=== PATIENT | male | born 1975 | race American Indian/Alaskan Native ===

== ENCOUNTER 2017-09-20 05:44 | Emergency (ER) | payer OTHER ==
[2017-09-20 06:16] VITALS: BP 158/96
== END 2017-09-20 09:25 | disposition left against medical advice (07) ==
LOC: ED 05:44
DX: R06.02 Shortness of breath (principal); Z53.21 Procedure and treatment not carried out due to patient leaving prior to being seen by health care provider

== ENCOUNTER 2021-08-15 20:06 | Inpatient (IN) | payer OTHER ==
--- NOTE | 2021-08-15 21:12 | Emergency Department Report ---
ED General Adult HPI - General Stated complaint: WELLNESS CHECK Time Seen by Provider: 08/15/21 20:53 Source: family Mode of arrival: Stretcher Limitations: Altered Mental Status, Physical Limitation - History of Present Illness Initial comments: 45-year-old male with history of anoxic brain injury (s/p cardiac arrest during a pancreatitis admission) presents to the hospital due to concerns of possible respiratory infection. History of present illness obtained from patient's since he is nonverbal with significant physical debility. Patient had anoxic brain injury status postcardiac arrest in June 2020. Since that time he has been hospitalized and then subsequently placed in a [facility]dc 2 hours away from the 's residence. She wanted him closer to home and felt that he was getting negligent care at the fdc due to recurrent bedsores. She recently got approved for a program that allows extended home health care for debilitated patients. Patient came home 1 week ago however, states that she did not receive any home care instructions or home nursing visits as promised. For the last several days she has noted he has been groaning a lot with increased airway congestion. She also expresses concerns that PEG tube may be leaking. - Related Data Home Medications Medication Instructions Recorded Confirmed Last Taken predniSONE [Deltasone] 20 mg PO TID PRN 01/25/15 08/16/21 01/24/15 Previous Rx's Medication Instructions Recorded Last Taken Type ALBUTEROL NEB's [Proventil 0.083% 2.5 mg IH Q4H PRN #25 neb 04/09/14 Unknown Rx NEBS] Albuterol Sulfate [Ventolin HFA] 2 puff IH Q4H PRN #1 hfa.aer.ad 04/09/14 Unknown Rx predniSONE [Deltasone] 20 mg PO TID #15 tab 04/09/14 01/24/15 Rx ALPRAZolam [Xanax TAB] 0.5 mg PO BID PRN #12 tab 01/25/15 Unknown Rx Lisinopril/Hydrochlorothiazide 1 each PO QDAY #30 tablet 01/25/15 Unknown Rx [Zestoretic 10-12.5 mg] Allergies Allergy/AdvReac Type Severity Reaction Status Date / Time No Known Allergies Allergy Verified 01/25/15 00:52 ED Review of Systems ROS: Stated complaint: WELLNESS CHECK Other details as noted in HPI Comment: Unobtainable due to pts medical conditions ED Past Medical Hx - Past Medical History Hx Hypertension: Yes Hx Asthma: Yes - Social History Smoking Status: Never Smoker - Medications Home Medications: Home Medications Medication Instructions Recorded Confirmed Last Taken Type ALBUTEROL NEB's [Proventil 0.083% 2.5 mg IH Q4H PRN #25 neb 04/09/14 08/16/21 Unknown Rx NEBS] Albuterol Sulfate [Ventolin HFA] 2 puff IH Q4H PRN #1 hfa.aer.ad 04/09/14 08/16/21 Unknown Rx predniSONE [Deltasone] 20 mg PO TID #15 tab 04/09/14 08/16/21 01/24/15 Rx ALPRAZolam [Xanax TAB] 0.5 mg PO BID PRN #12 tab 01/25/15 08/16/21 Unknown Rx Lisinopril/Hydrochlorothiazide 1 each PO QDAY #30 tablet 01/25/15 08/16/21 Unknown Rx [Zestoretic 10-12.5 mg] predniSONE [Deltasone] 20 mg PO TID PRN 01/25/15 08/16/21 01/24/15 History ED Physical Exam - Other Other exam information: General: No acute distress Head: Atraumatic Eyes: normal appearance ENT: Moist mucous membranes Neck: Normal appearance, no midline tenderness, tracheostomy scar noted Chest: Clear to auscultation bilaterally CV: Regular rate and rhythm Abdomen: Soft, normal bowel sounds, nontender, nondistended, no rebound or guarding Back: Normal inspection Extremity: Normal inspection, full range of motion Neuro: Eyes open, nonverbal, cannot follow commands, contracted upper extremities, no movement to lower extremities Psych: Appropriate behavior Skin: No rash ED Course Vital Signs 08/16/21 08/16/21 08/16/21 01:05 01:16 02:37 Temperature 98.6 F 99.9 F H Pulse Rate 142 H 142 H 118 H Respiratory 18 18 Rate Blood Pressure 137/69 Blood Pressure 131/69 126/88 [Right] O2 Sat by Pulse 96 97 Oximetry ED Medical Decision Making - Lab Data Result diagrams: 08/16/21 04:53 08/16/21 04:53 Lab Results 08/15/21 08/15/21 Range/Units 21:20 21:20 WBC 14.3 H (4.5-11.0) K/mm3 RBC 4.92 (3.65-5.03) M/mm3 Hgb 12.9 (11.8-15.2) gm/dl Hct 40.7 (35.5-45.6) % MCV 83 L (84-94) fl MCH 26 L (28-32) pg MCHC 32 (32-34) % RDW 14.2 (13.2-15.2) % Plt Count 244 (140-440) K/mm3 Lymph % (Auto) 18.3 (13.4-35.0) % [place] % (Auto) 5.3 (0.0-7.3) % Eos % (Auto) 2.4 (0.0-4.3) % Baso % (Auto) 0.4 (0.0-1.8) % Lymph # (Auto) 2.6 (1.2-5.4) K/mm3 [place] # (Auto) 0.8 (0.0-0.8) K/mm3 Eos # (Auto) 0.3 (0.0-0.4) K/mm3 Baso # (Auto) 0.1 (0.0-0.1) K/mm3 Seg Neutrophils % 73.6 H (40.0-70.0) % Seg Neutrophils # 10.6 H (1.8-7.7) K/mm3 Sodium 138 (137-145) mmol/L Potassium 4.3 (3.6-5.0) mmol/L Chloride 97.0 L (98-107) mmol/L Carbon Dioxide 27 (22-30) mmol/L Anion Gap 18 mmol/L BUN 14 (9-20) mg/dL Creatinine 0.5 L (0.8-1.3) mg/dL Estimated GFR > 60 ml/min BUN/Creatinine Ratio 28 % Glucose 123 H (75-100) mg/dL Calcium 10.3 H (8.4-10.2) mg/dL Total Bilirubin 0.30 (0.1-1.2) mg/dL AST 21 (5-40) units/L ALT 44 (7-56) units/L Alkaline Phosphatase 132 H (35-129) units/L Total Protein 8.3 H (6.3-8.2) g/dL Albumin 5.0 (3.9-5) g/dL Albumin/Globulin Ratio 1.5 % - EKG Data -: EKG Interpreted by Me EKG shows normal: sinus rhythm, ST-T waves (no stemi/ t inv) Rate: tachycardia (104) - Radiology Data Radiology results: report reviewed CHEST 1 VIEW 08/15/2021 8:21 PM INDICATION / CLINICAL INFORMATION: cough. COMPARISON: None available. FINDINGS: SUPPORT DEVICES: None. HEART / MEDIASTINUM: No significant abnormality. LUNGS / PLEURA: Questionable density in the retrocardiac region left lower lung No pneumothorax. ADDITIONAL FINDINGS: No significant additional findings. IMPRESSION: 1. Questionable density/infiltrate in the retrocardiac region in the left lower lung. - Medical Decision Making 45 yo male with hx of anoxic brain injury with increased secretions and x-ray findings of infiltrate. Patient meets criteria for sepsis without signs of septic shock at this time. Treated with vancomycin and cefepime as well as IV fluids. To be admitted by the hospitalist. PEG tube was placed by RN and no reports of leakage - Differential Diagnosis Increase secretions, pneumonia, sepsis, UTI, dehydration Critical Care Time: No Critical care attestation.: If time is entered above; I have spent that time in minutes in the direct care of this critically ill patient, excluding procedure time. ED Disposition Clinical Impression: Pneumonia, Sepsis, History of anoxic brain injury Disposition: ADMITTED INPATIENT Is pt being admited?: Yes Condition: Stable Time of Disposition: 22:25
--- NOTE | 2021-08-15 21:30 | XRay Report ---
CHEST 1 VIEW 08/15/2021 8:21 PM INDICATION / CLINICAL INFORMATION: cough. COMPARISON: None available. FINDINGS: SUPPORT DEVICES: None. HEART / MEDIASTINUM: No significant abnormality. LUNGS / PLEURA: Questionable density in the retrocardiac region left lower lung No pneumothorax. ADDITIONAL FINDINGS: No significant additional findings. IMPRESSION: 1. Questionable density/infiltrate in the retrocardiac region in the left lower lung. Signer Name: Dmitri Suárez MD Signed: 08/15/2021 9:26 PM Workstation Name: [id number]
[2021-08-15] MEDS ORDERED: SODIUM CHLORIDE 0.9% 1000 ML IV SOLN IV ONE (21:36)
[2021-08-15] MEDS ORDERED: CEFEPIME/NS 2 GM/100 ML 2 GM/100 ML BAG IV ONE (21:36)
[2021-08-15 21:41] LABS: Basophils # (Auto) 0.1 K/mm3 (0.0-0.1); Basophils % (Auto) 0.4 % (0.0-1.8); Eosinophils # (Auto) 0.3 K/mm3 (0.0-0.4); Eosinophils % (Auto) 2.4 % (0.0-4.3); Hematocrit 40.7 % (35.5-45.6); Hemoglobin 12.9 gm/dl (11.8-15.2); Lymphocytes # (Auto) 2.6 K/mm3 (1.2-5.4); Lymphocytes % (Auto) 18.3 % (13.4-35.0); Mean Corpuscular HGB Conc 32 % (32-34); Mean Corpuscular Volume 83 fl (84-94); Monocytes # (Auto) 0.8 K/mm3 (0.0-0.8); Monocytes % (Auto) 5.3 % (0.0-7.3); Platelet Count 244 K/mm3 (140-440); Red Blood Count 4.92 M/mm3 (3.65-5.03); Red Cell Distribution Width 14.2 % (13.2-15.2)
[2021-08-15 21:59] LABS: Alanine Aminotransferase 44 units/L (7-56); Blood Urea Nitrogen 14 mg/dL (9-20); Calcium 10.3 mg/dL (8.4-10.2); Hemolysis Index 3
[2021-08-15 22:00] LABS: BUN/Creatinine Ratio 28
[2021-08-15] MEDS ORDERED: VANCOMYCIN 1,250 MG in SODIUM CHLORIDE 0.9% 250ML 250 ML IV ONE (22:00)
[2021-08-15] MEDS ORDERED: VANCOMYCIN PHARMACY TO DOSE IV SCH (22:00)
[2021-08-15] MEDS ORDERED: MORPHINE 2 MG/1 ML INJ IV PRN (22:49)
[2021-08-15] MEDS ORDERED: ONDANSETRON 4 MG/2 ML INJ IV PRN (22:49)
[2021-08-15] MEDS ORDERED: ACETAMINOPHEN 325 MG TAB PO PRN (22:49)
[2021-08-15] MEDS ORDERED: HYDROmorphone 1 MG/1 ML INJ IV PRN (22:49)
[2021-08-15] MEDS ORDERED: ALBUTEROL 2.5 MG/3 ML NEBU IH PRN (22:49)
[2021-08-15] MEDS ORDERED: ALPRAZolam 0.5 MG TAB PO PRN (22:52)
[2021-08-15] MEDS ORDERED: ALBUTEROL 8.5 GM MDI INHALATION IH PRN (22:52)
[2021-08-15] MEDS ORDERED: predniSONE 20 MG TAB PO PRN (22:52)
--- NOTE | 2021-08-15 22:57 | History and Physical Report ---
History of Present Illness Date of examination: 08/15/21 Date of admission: 08/15/21 Chief complaint: Dyspnea History of present illness: 45-year-old male with history of respiratory failure status post trach removal, anoxic brain injury (s/p cardiac arrest during a pancreatitis admission) concerns of possible respiratory infection. Patient had anoxic brain injury status postcardiac arrest in June 2020. Since that time he has been hospitalized and then subsequently placed in a intermediate 2 hours away from the 's residence. She wanted him closer to home and felt that he was getting negligent care at the intermediate due to recurrent bedsores. She recently got approved for a program that allows extended home health care for debilitated patients. Patient came home 1 week ago however, states that she did not receive any home care instructions or home nursing visits as promised. For the last several days she has noted he has been groaning a lot with increased airway congestion. She also expresses concerns that PEG tube may be leaking. In the emergency room WBC of 14.3, lactic acid 2.50, chest x-ray shows questionable density/infiltrate in the upper retrocardiac region in the left lower lung. So going to admit the patient we will put the patient on pneumonia pathway, antibiotic will consult pulmonary for evaluation Past History Past Medical History: hypertension, other (Acute respiratory failure. Anoxic brain injury, cardiac arrest, asthma) Past Surgical History: Other (Trach removal) Social history: no significant social history Family history: hypertension Medications and Allergies Allergies Allergy/AdvReac Type Severity Reaction Status Date / Time No Known Allergies Allergy Verified 01/25/15 00:52 Home Medications Medication Instructions Recorded Confirmed Last Taken Type ALBUTEROL NEB's [Proventil 0.083% 2.5 mg IH Q4H PRN #25 neb 04/09/14 01/25/15 Unknown Rx NEBS] Albuterol Sulfate [Ventolin HFA] 2 puff IH Q4H PRN #1 hfa.aer.ad 04/09/14 01/25/15 Unknown Rx predniSONE [Deltasone] 20 mg PO TID #15 tab 04/09/14 01/25/15 01/24/15 Rx ALPRAZolam [Xanax TAB] 0.5 mg PO BID PRN #12 tab 01/25/15 Unknown Rx Lisinopril/Hydrochlorothiazide 1 each PO QDAY #30 tablet 01/25/15 Unknown Rx [Zestoretic 10-12.5 mg] predniSONE [Deltasone] 20 mg PO TID PRN 01/25/15 01/25/15 01/24/15 History Active Meds: Active Medications Acetaminophen (Acetaminophen 325 Mg Tab) 650 mg PO Q4H PRN PRN Reason: Pain MILD(1-3)/Fever >100.5/IBARRA Albuterol (Albuterol 2.5 Mg/3 Ml Nebu) 2.5 mg IH Q3HRT PRN PRN Reason: Shortness Of Breath Albuterol/Ipratropium (Ipratropium/Albuterol Sulfate 3 Ml Ampul.Neb) 1 ampul IH Q6HRT [facility] Azithromycin (Azithromycin 250 Mg Tab) 500 mg PO QDAY [facility]; Protocol Famotidine (Famotidine 20 Mg/2 Ml Inj) 20 mg IV BID [facility] Heparin Sodium (Porcine) (Heparin 5,000 Unit/1 Ml Vial) 5,000 unit SUB-Q Q12HR [facility] Hydromorphone HCl (Hydromorphone 1 Mg/1 Ml Inj) 0.5 mg IV Q3H PRN PRN Reason: Pain , Severe (7-10) Vancomycin HCl 1,250 mg/ (Sodium Chloride) 275 mls @ 183.333 mls/hr IV ONCE ONE; Protocol Stop: 08/15/21 23:29 Last Admin: 08/15/21 22:16 Dose: 183.333 mls/hr Dextrose/Sodium Chloride (D5/0.45ns) 1,000 mls @ 125 mls/hr IV DIRECT [facility] Ceftriaxone Sodium (Rocephin/Ns 2 Gm/100 Ml) 2 gm in 100 mls @ 200 mls/hr IV Q24H [facility]; Protocol Morphine Sulfate (Morphine 2 Mg/1 Ml Inj) 2 mg IV Q4H PRN PRN Reason: Pain, Moderate (4-6) Ondansetron HCl (Ondansetron 4 Mg/2 Ml Inj) 4 mg IV Q8H PRN PRN Reason: Nausea And Vomiting Sodium Chloride (Sodium Chloride 0.9% 10 Ml Flush Syringe) 10 ml IV BID [facility] Sodium Chloride (Sodium Chloride 0.9% 10 Ml Flush Syringe) 10 ml IV PRN PRN PRN Reason: LINE FLUSH Review of Systems All systems: negative Cardiovascular: shortness of breath, dyspnea on exertion Respiratory: cough, shortness of breath, dyspnea on exertion, congestion Exam - Constitutional General appearance: Present: no acute distress, well-nourished - EENT Eyes: Present: PERRL ENT: hearing intact, clear oral mucosa - Neck Neck: Present: supple, normal ROM - Respiratory Respiratory effort: normal Respiratory: bilateral: CTA - Cardiovascular Heart Sounds: Present: S1 & S2. Absent: rub, click - Extremities Extremities: pulses symmetrical, No edema Peripheral Pulses: within normal limits - Abdominal General gastrointestinal: Present: soft, non-tender, non-distended, normal bowel sounds Male genitourinary: Present: normal - Integumentary Integumentary: Present: clear, warm, dry - Musculoskeletal Musculoskeletal: gait normal, strength equal bilaterally - Neurologic Neurologic: CNII-XII intact, moves all extremities Results - Labs CBC & Chem 7: 08/15/21 21:20 08/15/21 21:20 Labs: Laboratory Last Values WBC 14.3 K/mm3 (4.5-11.0) H 08/15/21 21:20 RBC 4.92 M/mm3 (3.65-5.03) 08/15/21 21:20 Hgb 12.9 gm/dl (11.8-15.2) 08/15/21 21:20 Hct 40.7 % (35.5-45.6) 08/15/21 21:20 MCV 83 fl (84-94) L 08/15/21 21:20 MCH 26 pg (28-32) L 08/15/21 21:20 MCHC 32 % (32-34) 08/15/21 21:20 RDW 14.2 % (13.2-15.2) 08/15/21 21:20 Plt Count 244 K/mm3 (140-440) 08/15/21 21:20 Lymph % (Auto) 18.3 % (13.4-35.0) 08/15/21 21:20 [place] % (Auto) 5.3 % (0.0-7.3) 08/15/21 21:20 Eos % (Auto) 2.4 % (0.0-4.3) 08/15/21 21:20 Baso % (Auto) 0.4 % (0.0-1.8) 08/15/21 21:20 Lymph # (Auto) 2.6 K/mm3 (1.2-5.4) 08/15/21 21:20 [place] # (Auto) 0.8 K/mm3 (0.0-0.8) 08/15/21 21:20 Eos # (Auto) 0.3 K/mm3 (0.0-0.4) 08/15/21 21:20 Baso # (Auto) 0.1 K/mm3 (0.0-0.1) 08/15/21 21:20 Seg Neutrophils % 73.6 % (40.0-70.0) H 08/15/21 21:20 Seg Neutrophils # 10.6 K/mm3 (1.8-7.7) H 08/15/21 21:20 Sodium 138 mmol/L (137-145) 08/15/21 21:20 Potassium 4.3 mmol/L (3.6-5.0) 08/15/21 21:20 Chloride 97.0 mmol/L (98-107) L 08/15/21 21:20 Carbon Dioxide 27 mmol/L (22-30) 08/15/21 21:20 Anion Gap 18 mmol/L 08/15/21 21:20 BUN 14 mg/dL (9-20) 08/15/21 21:20 Creatinine 0.5 mg/dL (0.8-1.3) L 08/15/21 21:20 Estimated GFR > 60 ml/min 08/15/21 21:20 BUN/Creatinine Ratio 28 % 08/15/21 21:20 Glucose 123 mg/dL (75-100) H 08/15/21 21:20 Lactic Acid 2.50 mmol/L (0.7-2.0) H* 08/15/21 21:20 Calcium 10.3 mg/dL (8.4-10.2) H 08/15/21 21:20 Total Bilirubin 0.30 mg/dL (0.1-1.2) 08/15/21 21:20 AST 21 units/L (5-40) 08/15/21 21:20 ALT 44 units/L (7-56) 08/15/21 21:20 Alkaline Phosphatase 132 units/L (35-129) H 08/15/21 21:20 Total Protein 8.3 g/dL (6.3-8.2) H 08/15/21 21:20 Albumin 5.0 g/dL (3.9-5) 08/15/21 21:20 Albumin/Globulin Ratio 1.5 % 08/15/21 21:20 - Imaging and Cardiology Chest x-ray: report reviewed Assessment and Plan VTE prophylaxis?: Chemical Plan of care discussed with patient/family: Yes - Patient Problems (1) Pneumonia Status: Acute Plan to address problem: Admit the patient to the IM. Oxygen via nasal cannula 3 L/min. DuoNeb by nebulizer every 4 hours. Rocephin 2 g IV daily. Zithromax 500 mg IV daily. Blood culture and sputum culture. Pulmonary evaluation (2) History of respiratory failure Status: Acute Plan to address problem: Oxygen via nasal cannula 3 L/min. DuoNeb by nebulizer every 4 hours. Prednisone 20 mg p.o. daily (3) Asthma Status: Acute Plan to address problem: Oxygen via nasal cannula 3 L/min. DuoNeb by nebulizer every 4 hours. Prednisone 20 mg p.o. daily (4) Anoxic encephalopathy Status: Acute Plan to address problem: We will monitor the patient closely. Outpatient follow-up with neurology (5) Sepsis Status: Acute Plan to address problem: D5 half-normal saline at the rate of 100 cc/h. Rocephin 2 g IV daily. Zithromax 500 mg IV daily. Blood culture and sputum culture. Recheck CBC and lactic acid (6) DVT prophylaxis Status: Acute Plan to address problem: Heparin 5000 units subcu every 12 hours for DVT prophylaxis. Pepcid 20 mg IV every 12 hours for GI prophylaxis. Patient is a full code
[2021-08-16] MEDS ORDERED: SODIUM CHLORIDE 0.9% 500 ML 500 ML IV ONE (00:34)
[2021-08-16] MEDS: cefTRIAXone/NS 2 GM/100 ML 2 GM/100 ML BAG IV SCH ×2 (00:49→22:32)
[2021-08-16] MEDS ORDERED: dilTIAZem 25 MG/5 ML INJ IV ONE (00:55)
[2021-08-16] MEDS ORDERED: dilTIAZem 25 MG/5 ML INJ ONE (01:04)
[2021-08-16] MEDS: IPRATROPIUM/ALBUTEROL SULFATE 3 ML AMPUL.NEB IH SCH ×4 (03:02→21:03)
[2021-08-16] MEDS: D5W/0.45% NACL 1,000 ML IV SCH ×2 (03:12→10:44)
[2021-08-16 05:14] LABS: Basophils % (Auto) 0.3 % (0.0-1.8); Eosinophils # (Auto) 0.1 K/mm3 (0.0-0.4); Eosinophils % (Auto) 0.6 % (0.0-4.3); Hematocrit 36.3 % (35.5-45.6); Hemoglobin 11.4 gm/dl (11.8-15.2); Lymphocytes # (Auto) 1.6 K/mm3 (1.2-5.4); Lymphocytes % (Auto) 15.3 % (13.4-35.0); Mean Corpuscular HGB Conc 32 % (32-34); Mean Corpuscular Volume 83 fl (84-94); Monocytes # (Auto) 0.7 K/mm3 (0.0-0.8); Monocytes % (Auto) 6.9 % (0.0-7.3); Platelet Count 196 K/mm3 (140-440); Red Blood Count 4.36 M/mm3 (3.65-5.03); Red Cell Distribution Width 14.3 % (13.2-15.2)
[2021-08-16 05:34] LABS: Blood Urea Nitrogen 14 mg/dL (9-20); Calcium 9.2 mg/dL (8.4-10.2); Hemolysis Index 2
[2021-08-16 05:43] LABS: BUN/Creatinine Ratio 35
--- NOTE | 2021-08-16 09:21 | Event Note ---
Date: 08/16/21 PEG site examined, appears c/d/i and seems to be in proper location. Can try feedings/meds via peg tube, and if there is concern about leaking/other issues, would obtain gastrograffin study via peg to ensure in proper spot. please call back if there are issues after resuming use of peg tube
--- NOTE | 2021-08-16 09:47 | Electrocardiograph Report ---
[facility] Test Date: 2021-08-15 Test Time: 21:41:28 Pat Name: SHANIA RIGGINS Department: Room: A265 1 Gender: M Dosimetrist: MACI : 1975 Requested By: ZACK WILDER Order Number: [id number] Reading MD: Damien Dsouza Measurements Intervals [place] Rate: 104 P: 69 NM: 138 QRS: -19 QRSD: 83 T: 14 QT: 323 QTc: 426 Interpretive Statements Sinus tachycardia Probable left atrial enlargement Low voltage, precordial leads No previous ECG available for comparison Electronically Signed On 08-16-2021 9:46:50 EDT by Damien Dsouza
[2021-08-16] MEDS ORDERED: NON-FORMULARY EACH (Lisinopril/Hydrochlorothiazide [Zestoretic 10-12.5 Mg] 1 EACH Tablet) PO SCH (10:00)
[2021-08-16] MEDS: FAMOTIDINE 20 MG/2 ML INJ IV SCH ×2 (11:53→22:19)
[2021-08-16] MEDS: HEPARIN 5,000 UNIT/1 ML VIAL SUB-Q SCH ×2 (11:53→22:19)
[2021-08-16] MEDS: hydroCHLOROthiazide 12.5 MG CAP PO SCH (11:54)
[2021-08-16] MEDS: AZITHROMYCIN 250 MG TAB PO SCH (11:54)
[2021-08-16] MEDS: LISINOPRIL 10 MG TAB PO SCH (11:54)
--- NOTE | 2021-08-16 13:04 | Consultation ---
History of Present Illness Consult date: 08/16/21 Reason for consult: abnormal CXR/CT, other (Lung congestion) History of present illness: 45-year-old male with history of respiratory failure status post trach removal, anoxic brain injury (s/p cardiac arrest during a pancreatitis admission) c oncerns of possible respiratory infection. Patient had anoxic brain injury status postcardiac arrest in June 2020. Since that time he has been hospitalized and then subsequently placed in a snf 2 hours away from the 's residence. She wanted him closer to home and felt that he was ge tting negligent care at the snf due to recurrent bedsores. She recently got approved for a program that allows extended home health care for debilitated patients. Patient came home 1 week ago however, states that she did not receive any home care instructions or home nursing visits as promised. For the last several days she has noted he has been groaning a lot with increased airway congestion. She also expresses concerns that PEG tube may be leaking. In the emergency room WBC of 14.3, lactic acid 2.50, chest x-ray shows questionable density/infiltrate in the retrocardiac region in the left lower lung. Patient currently on pneumonia pathway. Past History Past Medical History: hypertension, other (Acute respiratory failure. Anoxic brain injury, cardiac arrest, asthma and pancreatitis) Past Surgical History: Other (Trach removal) Social history: no significant social history Family history: hypertension Medications and Allergies Allergies Allergy/AdvReac Type Severity Reaction Status Date / Time No Known Allergies Allergy Verified 01/25/15 00:52 Home Medications Medication Instructions Recorded Confirmed Last Taken Type ALBUTEROL NEB's [Proventil 0.083% 2.5 mg IH Q4H PRN #25 neb 04/09/14 01/25/15 Unknown Rx NEBS] Albuterol Sulfate [Ventolin HFA] 2 puff IH Q4H PRN #1 hfa.aer.ad 04/09/14 01/25/15 Unknown Rx predniSONE [Deltasone] 20 mg PO TID #15 tab 04/09/14 01/25/15 01/24/15 Rx ALPRAZolam [Xanax TAB] 0.5 mg PO BID PRN #12 tab 01/25/15 Unknown Rx Lisinopril/Hydrochlorothiazide 1 each PO QDAY #30 tablet 01/25/15 Unknown Rx [Zestoretic 10-12.5 mg] predniSONE [Deltasone] 20 mg PO TID PRN 01/25/15 01/25/15 01/24/15 History Active Meds: Active Medications Acetaminophen (Acetaminophen 325 Mg Tab) 650 mg PO Q4H PRN PRN Reason: Pain MILD(1-3)/Fever >100.5/IBARRA Albuterol (Albuterol 2.5 Mg/3 Ml Nebu) 2.5 mg IH Q3HRT PRN PRN Reason: Shortness Of Breath Albuterol/Ipratropium (Ipratropium/Albuterol Sulfate 3 Ml Ampul.Neb) 1 ampul IH Q6HRT [facility] Last Admin: 08/16/21 08:57 Dose: 1 ampul Alprazolam (Alprazolam 0.5 Mg Tab) 0.5 mg PO BID PRN PRN Reason: Anxiety Azithromycin (Azithromycin 250 Mg Tab) 500 mg PO QDAY [facility]; Protocol Stop: 08/20/21 10:01 Last Admin: 08/16/21 11:54 Dose: 500 mg Famotidine (Famotidine 20 Mg/2 Ml Inj) 20 mg IV BID [facility] Last Admin: 08/16/21 11:53 Dose: 20 mg Heparin Sodium (Porcine) (Heparin 5,000 Unit/1 Ml Vial) 5,000 unit SUB-Q Q12HR [facility] Last Admin: 08/16/21 11:53 Dose: 5,000 unit Hydrochlorothiazide (Hydrochlorothiazide 12.5 Mg Cap) 12.5 mg PO QDAY [facility] Last Admin: 08/16/21 11:54 Dose: 12.5 mg Hydromorphone HCl (Hydromorphone 1 Mg/1 Ml Inj) 0.5 mg IV Q3H PRN PRN Reason: Pain , Severe (7-10) Dextrose/Sodium Chloride (D5/0.45ns) 1,000 mls @ 125 mls/hr IV DIRECT [facility] Last Admin: 08/16/21 10:44 Dose: 125 mls/hr Ceftriaxone Sodium (Rocephin/Ns 2 Gm/100 Ml) 2 gm in 100 mls @ 200 mls/hr IV Q24H [facility]; Protocol Last Admin: 08/16/21 00:49 Dose: 200 mls/hr Lisinopril (Lisinopril 10 Mg Tab) 10 mg PO QDAY [facility] Last Admin: 08/16/21 11:54 Dose: 10 mg Morphine Sulfate (Morphine 2 Mg/1 Ml Inj) 2 mg IV Q4H PRN PRN Reason: Pain, Moderate (4-6) Ondansetron HCl (Ondansetron 4 Mg/2 Ml Inj) 4 mg IV Q8H PRN PRN Reason: Nausea And Vomiting Prednisone (Prednisone 20 Mg Tab) 20 mg PO TID PRN PRN Reason: asthma Sodium Chloride (Sodium Chloride 0.9% 10 Ml Flush Syringe) 10 ml IV BID [facility] Last Admin: 08/16/21 11:55 Dose: 10 ml Sodium Chloride (Sodium Chloride 0.9% 10 Ml Flush Syringe) 10 ml IV PRN PRN PRN Reason: LINE FLUSH Review of Systems ROS unobtainable: due to mental status Physical Examination Vital signs: Vital Signs Pulse BP 142 H 137/69 08/16/21 01:05 08/16/21 01:05 General appearance: other (Altered mental status in a vegetative state. Retrognathia noted) Eyes: non-icteric ENT: oropharynx moist, other (Secretions noted) Neck: supple, other (Healed trach site. No stridor) Ascultation: Bilateral: other (Some upper airway noises bilaterally) Cardiovascular: regular rate and rhythm Gastrointestinal: normoactive bowel sounds, soft, non-tender, other (PEG present) Integumentary: normal Extremities: no cyanosis, no edema Gait: other (Bedridden) other (Vegetative state unresponsive opens eyes) Results - Laboratory Findings CBC and BMP: 08/16/21 04:53 08/16/21 04:53 Abnormal lab findings: Abnormal Labs 08/15/21 08/15/21 08/15/21 21:20 21:20 21:20 WBC 14.3 H Hgb MCV 83 L MCH 26 L Seg Neutrophils % 73.6 H Seg Neutrophils # 10.6 H Chloride 97.0 L Creatinine 0.5 L Glucose 123 H Lactic Acid 2.50 H* Calcium 10.3 H Alkaline Phosphatase 132 H Total Protein 8.3 H 08/15/21 08/16/21 08/16/21 23:19 04:53 04:53 WBC Hgb 11.4 L MCV 83 L MCH 26 L Seg Neutrophils % 76.9 H Seg Neutrophils # 7.9 H Chloride Creatinine 0.4 L Glucose 153 H Lactic Acid 2.20 H* Calcium Alkaline Phosphatase Total Protein - Diagnostic Findings Chest x-ray: image reviewed (Questionable subtle infiltrate in the retrocardiac area and left lower lobe) Assessment and Plan Impression: Possible left lower lobe pneumonia Suspect aspiration pneumonia Anoxic brain injury. Patient in vegetative state. Poor airway clearance. Recommendation: Continue with antibiotic therapy. Aggressive pulmonary toileting. Patient will require suction machine etc. at home. Long-term prognosis is guarded DVT and GI prophylaxis
--- NOTE | 2021-08-16 13:37 | Progress Note ---
Assessment and Plan Assessment and plan: 45-year-old male with history of respiratory failure status post trach removal, anoxic brain injury (s/p cardiac arrest during a pancreatitis admission) concerns of possible respiratory infection. Patient had anoxic brain injury status postcardiac arrest in June 2020. Since that time he has been hosp italized and then subsequently placed in a care home 2 hours away from the 's residence. She wanted him closer to home and felt that he was getting negligent care at the care home due to recurrent bedsores. She recently got approved for a program that allows extended home health care for debilitated patients. Patient came home 1 week ago however, states that she did not receive any home care instructions or home nursing visits as promised. For the last several days she has noted he has been groaning a lot with increased airway congestion. She also expresses concerns that PEG tube may be leaking. In the emergency room WBC of 14.3, lactic acid 2.50, chest x-ray shows quest ionable density/infiltrate in the upper retrocardiac region in the left lower lung. So going to admit the patient we will put the patient on pneumonia pathway, antibiotic will consult pulmonary for evaluation 08/16: Discussed extensively with the spouse. Will obtain case management to assist with home discharge plan to ensure the spouse has the support needed at home and training required to take care of the patient. In the meantime continue oxygen support and also antibiotic therapy. Will obtain CT abdomen and pelvis with p.o. contrast. We will follow leukocytosis and lactic acidosis. P atient does not have any new fever will transition patient to the medical floor with continued management. Aspiration precautions and fall precautions. Plan of care discussed with the spouse advance care directive planning discussed in detail patient remains a full code. Spent with greater than 50% spent on counseling and care coordination #Pneumonia Status: Acute Plan to address problem: Admit the patient to the [facility]. Oxygen via nasal cannula 3 L/min. DuoNeb by nebulizer every 4 hours. Rocephin 2 g IV daily. Zithromax 500 mg IV daily. Blood culture and sputum culture. Pulmonary evaluation # History of respiratory failure Status: Acute Plan to address problem: Oxygen via nasal cannula 3 L/min. DuoNeb by nebulizer every 4 hours. Prednisone 20 mg p.o. daily #Asthma by history Status: Acute Plan to address problem: Oxygen via nasal cannula 3 L/min. DuoNeb by nebulizer every 4 hours. Prednisone 20 mg p.o. daily #Anoxic encephalopathy Status: Acute Plan to address problem: We will monitor the patient closely. Outpatient follow-up with neurology #Sepsis Status: Acute Plan to address problem: D5 half-normal saline at the rate of 100 cc/h. Rocephin 2 g IV daily. Zithromax 500 mg IV daily. Blood culture and sputum culture. Recheck CBC and lactic acid #possible malfunctioning PEG tube #Bedbound #Abdominal pain #DVT prophylaxis Status: Acute Plan to address problem: Heparin 5000 units subcu every 12 hours for DVT prophylaxis. Pepcid 20 mg IV every 12 hours for GI prophylaxis. Patient is a full code 35 minutes History Interval history: Patient seen and examined spouse at bedside. Appears that the patient was just sent home from nursing facility but unfortunately there was no support at the house and no training provided to the spouse. She reports that he appeared to have been gasping for air and also appeared to have a significant amount of secretion and sometimes moaning as if in pain. Hospitalist Physical - Physical exam Narrative exam: VITAL SIGNS: Reviewed. GENERAL: The patient appears normally developed, well healed stoma vital signs as documented. HEAD: No signs of head trauma. EYES: Pupils are equal. Extraocular motions intact. EARS: Unable to examine due to anoxic injury MOUTH: Oropharynx is normal. NECK: No adenopathy, no JVD. CHEST: Chest with clear breath sounds bilaterally. No wheezes, rales, or rhonchi. CARDIAC: Regular rate and rhythm. S1 and S2, without murmurs, gallops, or rubs. VASCULAR: No Edema. Peripheral pulses normal and equal in all extremities. ABDOMEN: Soft, non tender and non distended. No rebound or guarding, and no masses palpated. Bowel Sounds normal. MUSCULOSKELETAL: Good range of motion of all major joints. Extremities without clubbing, cyanosis or edema. NEUROLOGIC EXAM: Awake contracted upper extremities. Full neuro exam unable to perform as patient has underlying profound encephalopathy from anoxic encephalopathy PSYCHIATRIC: Unable to exam SKIN: detail exam as documented in skin assessment - Constitutional Vitals: Temp Pulse Resp BP Pulse Ox 98.0 F 86 14 96/62 100 08/16/21 11:42 08/16/21 11:54 08/16/21 08:58 08/16/21 11:54 08/16/21 09:11 General appearance: Present: no acute distress, well-nourished Results - Labs CBC & Chem 7: 08/16/21 04:53 08/16/21 04:53 Labs: Laboratory Last Values WBC 10.3 K/mm3 (4.5-11.0) 08/16/21 04:53 RBC 4.36 M/mm3 (3.65-5.03) 08/16/21 04:53 Hgb 11.4 gm/dl (11.8-15.2) L 08/16/21 04:53 Hct 36.3 % (35.5-45.6) 08/16/21 04:53 MCV 83 fl (84-94) L 08/16/21 04:53 MCH 26 pg (28-32) L 08/16/21 04:53 MCHC 32 % (32-34) 08/16/21 04:53 RDW 14.3 % (13.2-15.2) 08/16/21 04:53 Plt Count 196 K/mm3 (140-440) 08/16/21 04:53 Lymph % (Auto) 15.3 % (13.4-35.0) 08/16/21 04:53 [place] % (Auto) 6.9 % (0.0-7.3) 08/16/21 04:53 Eos % (Auto) 0.6 % (0.0-4.3) 08/16/21 04:53 Baso % (Auto) 0.3 % (0.0-1.8) 08/16/21 04:53 Lymph # (Auto) 1.6 K/mm3 (1.2-5.4) 08/16/21 04:53 [place] # (Auto) 0.7 K/mm3 (0.0-0.8) 08/16/21 04:53 Eos # (Auto) 0.1 K/mm3 (0.0-0.4) 08/16/21 04:53 Baso # (Auto) 0.0 K/mm3 (0.0-0.1) 08/16/21 04:53 Seg Neutrophils % 76.9 % (40.0-70.0) H 08/16/21 04:53 Seg Neutrophils # 7.9 K/mm3 (1.8-7.7) H 08/16/21 04:53 Sodium 140 mmol/L (137-145) 08/16/21 04:53 Potassium 3.9 mmol/L (3.6-5.0) 08/16/21 04:53 Chloride 102.6 mmol/L (98-107) 08/16/21 04:53 Carbon Dioxide 26 mmol/L (22-30) 08/16/21 04:53 Anion Gap 15 mmol/L 08/16/21 04:53 BUN 14 mg/dL (9-20) 08/16/21 04:53 Creatinine 0.4 mg/dL (0.8-1.3) L 08/16/21 04:53 Estimated GFR > 60 ml/min 08/16/21 04:53 BUN/Creatinine Ratio 35 % 08/16/21 04:53 Glucose 153 mg/dL (75-100) H 08/16/21 04:53 Lactic Acid 2.20 mmol/L (0.7-2.0) H* 08/15/21 23:19 Calcium 9.2 mg/dL (8.4-10.2) 08/16/21 04:53 Total Bilirubin 0.30 mg/dL (0.1-1.2) 08/15/21 21:20 AST 21 units/L (5-40) 08/15/21 21:20 ALT 44 units/L (7-56) 08/15/21 21:20 Alkaline Phosphatase 132 units/L (35-129) H 08/15/21 21:20 Total Protein 8.3 g/dL (6.3-8.2) H 08/15/21 21:20 Albumin 5.0 g/dL (3.9-5) 08/15/21 21:20 Albumin/Globulin Ratio 1.5 % 08/15/21 21:20 Microbiology: Microbiology 08/15/21 21:20 Peripheral/Venous Blood Culture - Preliminary Culture in Progress 08/15/21 21:20 Peripheral/Venous Blood Culture - Preliminary Culture in Progress Castellanos/IV: Voiding Method Condom Catheter Active Medications - Current Medications Current Medications: Generic Name Dose Route Start Last Admin Trade Name Freq PRN Reason Stop Dose Admin Acetaminophen 650 mg 08/15/21 22:49 Acetaminophen 325 Mg Tab PO Q4H PRN Pain MILD(1-3)/Fever >100.5/IBARRA Albuterol 2.5 mg 08/15/21 22:49 Albuterol 2.5 Mg/3 Ml Nebu IH Q3HRT PRN Shortness Of Breath Albuterol/Ipratropium 1 ampul 08/16/21 02:00 08/16/21 08:57 Ipratropium/Albuterol Sulfate 3 Ml Ampul.Neb IH 1 ampul Q6HRT SONJA Administration Alprazolam 0.5 mg 08/15/21 22:52 Alprazolam 0.5 Mg Tab PO BID PRN Anxiety Azithromycin 500 mg 08/16/21 10:00 08/16/21 11:54 Azithromycin 250 Mg Tab PO 08/20/21 10:01 500 mg QDAY SONJA Administration Protocol Famotidine 20 mg 08/16/21 10:00 08/16/21 11:53 Famotidine 20 Mg/2 Ml Inj IV 20 mg BID SONJA Administration Heparin Sodium (Porcine) 5,000 unit 08/16/21 10:00 08/16/21 11:53 Heparin 5,000 Unit/1 Ml Vial SUB-Q 5,000 unit Q12HR SONJA Administration Hydrochlorothiazide 12.5 mg 08/16/21 10:00 08/16/21 11:54 Hydrochlorothiazide 12.5 Mg Cap PO 12.5 mg QDAY SONJA Administration Hydromorphone HCl 0.5 mg 08/15/21 22:49 Hydromorphone 1 Mg/1 Ml Inj IV Q3H PRN Pain , Severe (7-10) Dextrose/Sodium Chloride 1,000 mls @ 125 mls/hr 08/15/21 23:00 08/16/21 10:44 D5/0.45ns IV 125 mls/hr DIRECT SONJA Administration Ceftriaxone Sodium 2 gm in 100 mls @ 200 mls/hr 08/15/21 23:00 08/16/21 00:49 Rocephin/Ns 2 Gm/100 Ml IV 200 mls/hr Q24H SONJA Administration Protocol Lisinopril 10 mg 08/16/21 10:00 08/16/21 11:54 Lisinopril 10 Mg Tab PO 10 mg QDAY SONJA Administration Morphine Sulfate 2 mg 08/15/21 22:49 Morphine 2 Mg/1 Ml Inj IV Q4H PRN Pain, Moderate (4-6) Ondansetron HCl 4 mg 08/15/21 22:49 Ondansetron 4 Mg/2 Ml Inj IV Q8H PRN Nausea And Vomiting Prednisone 20 mg 08/15/21 22:52 Prednisone 20 Mg Tab PO TID PRN asthma Sodium Chloride 10 ml 08/16/21 10:00 08/16/21 11:55 Sodium Chloride 0.9% 10 Ml Flush Syringe IV 10 ml BID SONJA Administration Sodium Chloride 10 ml 08/15/21 22:49 Sodium Chloride 0.9% 10 Ml Flush Syringe IV PRN PRN LINE FLUSH Nutrition/Malnutrition Assess - Dietary Evaluation Nutrition/Malnutrition Findings: Nutrition Notes Start: 08/16/21 10:38 Freq: Status: Active Protocol: Document 08/16/21 10:38 RS (Rec: 08/16/21 11:01 RS [id number]) Nutrition Notes Need for Assessment generated from: MD Order Initial or Follow up Assessment Current Diagnosis Decubitus(Pressure Ulcer), Sepsis,Respiratory Failure Other Pertinent Diagnosis Pneu, S/P Cardiac Arrest, Encephalopathy Dyspenea Current Diet NPO Labs/Tests Cr: 0.4 Glu: 153 Pertinent Medications D5/0.45NS at 125mL/hr Height 6 ft Weight 68 kg [place] Body Weight (kg) 80.90 BMI 20.3 Intake Prior to Admission Poor Weight change and time frame 22% wt loss in 1.5 months. Pt was 87.09kg upon admission in June 2021 Weight Status Appropriate Subjective/Other Information RD consult from MD for TF. 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 Assistant Track And Field Coach also reports PEG site leakage. MD consulted for PEG examination, noted that site was c/d/i and was in appropriate positioning for use. MD reports that if leaking occurs a gasrograffin study would be obtained to ensure proper spot. Pt height incorrect in chart. RD obtained ht from previous admissions at [facility]. Percent of energy/protein needs met: 0/0 Burn Absent Trauma Absent GI Symptoms None Current % PO Negligible Minimum of two criteria No physical signs of malnutrition Interpretation of Weight Loss (severe) >5% in 1 month #1 Nutrition Diagnosis Inadequate oral intake Etiology s/p cardiac arrest As Evidenced by Signs and Symptoms pt has 22% wt loss in 1.5 months and currently NPO Is patient on ventilator? No Is Patient Ambulatory and/or Out of Bed No REE-([facility]-confined to bed) [phone] Calculation Used for Recommendations [facility] Additional Notes Protein: 68-82g/day (1.0-1.2g/ kg BW/day ) Fluid needs: 1mL/kcal or per MD Nutrition Intervention Change Diet Order: Start TF Nutrition Support: Jevity 1.2 at 70mL/hr w/ free water flush of 175mL q4hr Kcal 2,016 Protein (gm) 93 Fluid (mL) 1,356 Goal #1 Pt will meet at least 75% of kcal/protein needs via TF Goal #2 wt maintenance Anticipated Discharge Needs: TF Follow-Up By: 08/18/21 Additional Comments F/U for TF tolerance/ initiation, corrected/updated wt in EMR
[2021-08-16 14:27] LABS: Bilirubin,Urine NEG (Negative); Blood,Urine NEG (Negative); Color,Urine Yellow (Yellow); Mucus,Urine FEW /HPF; Protein,Urine <15 mg/dL mg/dL (Negative); RBC,Urine < 1.0 /HPF (0.0-6.0); Urobilinogen,Urine < 2.0 mg/dL (<2.0)
--- NOTE | 2021-08-17 03:07 | Cat Scan Report ---
CT ABDOMEN AND PELVIS WITHOUT CONTRAST INDICATION / CLINICAL INFORMATION: abdominal pain. TECHNIQUE: Axial CT images were obtained through the abdomen and pelvis without IV contrast. All CT scans at this location are performed using CT dose reduction for ALARA by means of automated exposure control. COMPARISON: None available. FINDINGS: LOWER CHEST: No significant abnormality. AORTA / ARTERIES: No significant abnormality. IVC / VEINS: No significant abnormality. LYMPH NODES: No significant adenopathy. COLON: No significant abnormality. APPENDIX: No significant abnormality. STOMACH / SMALL BOWEL: There is a gastrostomy tube terminating in the stomach. No significant abnorma lity of the small bowel. PERITONEUM: No free fluid. No free air. No fluid collection. LIVER: No significant abnormality. GALLBLADDER: No significant abnormality. BILE DUCTS: No significant abnormality. PANCREAS: No significant abnormality. SPLEEN: No significant abnormality. ADRENALS: No significant abnormality. RIGHT KIDNEY / URETER: No significant abnormality. LEFT KIDNEY / URETER: No significant abnormality. URINARY BLADDER: Multiple stones are noted within the urinary bladder. REPRODUCTIVE ORGANS: No significant abnormality. SKELETAL SYSTEM: There is heterotopic ossification involving the right hip joint. 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 ADDITIONAL FINDINGS: There is soft tissue edema involving the bilateral thighs. IMPRESSION: 1. Multiple bladder stones, otherwise no CT findings to explain abdominal pain. 2. Additional findings as above. Signer Name: Moreno Paige DO Signed: 08/17/2021 3:02 AM Workstation Name: [id number]
[2021-08-17] MEDS: D5W/0.45% NACL 1,000 ML IV SCH (04:10)
[2021-08-17] MEDS: IPRATROPIUM/ALBUTEROL SULFATE 3 ML AMPUL.NEB IH SCH ×4 (04:27→20:36)
[2021-08-17 06:33] LABS: Hematocrit 34.9 % (35.5-45.6); Mean Corpuscular HGB Conc 32 % (32-34); Mean Corpuscular Volume 83 fl (84-94); Platelet Count 191 K/mm3 (140-440); Red Blood Count 4.21 M/mm3 (3.65-5.03)
[2021-08-17 06:50] LABS: Blood Urea Nitrogen 6 mg/dL (9-20); Calcium 9.2 mg/dL (8.4-10.2); Hemolysis Index 1
[2021-08-17 06:58] LABS: BUN/Creatinine Ratio 15
--- NOTE | 2021-08-17 10:16 | Discharge Summary ---
Providers - Providers Date of Admission: 08/15/21 22:49 Attending physician: CHECO RODRIGUEZ MD 08/15/21 22:25 Consult to Case Management [CONS] Urgent Services Needed at Discharge: Home Health Services Notified:: n 08/15/21 22:49 Consult to Physician [CONS] Routine Comment: Consulting Provider: PAULA SUAREZ Physician Instructions: Reason For Exam: Dyspnea 08/16/21 09:00 Consult to Dietitian/Nutrition [CONS] Routine Physician Instructions: Reason For Exam: Reason for Consult: Write/Manage Tube Feeding 08/16/21 09:07 Consult to Physician [CONS] Routine Comment: Consulting Provider: STEPH SHELTON Physician Instructions: Reason For Exam: LEAKING PEG 08/16/21 09:21 Consult to Case Management [CONS] Routine Services Needed at Discharge: Marine Photographer Notified:: NO Additional Physician Instructions: TRAINING FOR SPOUSE ON MANGEMENT AT HOME 08/17/21 08:21 Occupational Therapy Evaluate and Treat [CONS] Routine Comment: Reason For Exam: debility, bed bound Physical Therapy Evaluation and Treat [CONS] Routine Comment: Reason For Exam: debility, bedbound Primary care physician: MACHINE TRACER Hospitalization Reason for admission: SHORTNESS BREATH Condition: Stable Hospital course: 45-year-old male with history of respiratory failure status post trach removal, anoxic brain injury (s/p cardiac arrest during a pancreatitis admission) concerns of possible respiratory infection. Patient had anoxic brain injury status postcardiac arrest in June 2020. Since that time he has been hospital ized and then subsequently placed in a residential 2 hours away from the 's residence. She wanted him closer to home and felt that he was getting negligent care at the residential due to recurrent bedsores. She recently got approved for a program that allows extended home health care for debilitated patients. Patient came home 1 week ago however, states that she did not receive any home care instructions or home nursing visits as promised. For the last several days she has noted he has been groaning a lot with increased airway congestion. She also expresses concerns that PEG tube may be leaking. In the emergency room WBC of 14.3, lactic acid 2.50, chest x-ray shows questionable density/infiltrate in the upper retrocardiac region in the left lower lung. So going to admit the patient we will put the patient on pneumonia pathway, antibiotic will consult pulmonary for evaluation 08/16: Discussed extensively with the spouse. Will obtain case management to assist with home discharge plan to ensure the spouse has the support needed at home and training required to take care of the patient. In the meantime continue oxygen support and also antibiotic therapy. Will obtain CT abdomen and pelvis with p.o. contrast. We will follow leukocytosis and lactic acidosis. Patient does not have any new fever will transition patient to the medical floor with continued management. Aspiration precautions and fall precautions. Plan of care discussed with the spouse advance care directive planning discussed in detail patient remains a full code. Spent with greater than 50% spent on counseling and care coordination 08/17: Patient doing well, tolerating tube feed. SPOKE WITH THE PATIENTS SPOUSE, She will come in for training and education prior to discharge today. Patient has bladder stones but no obstruction. she will follow with Urology and Also with Neurology. She understanding that there may be no meaningful recovery with the anoxic injury. Oxygen weaned. CT A/P IMPRESSION: 1. Multiple bladder stones, otherwise no CT findings to explain abdominal pain. 2. Additional findings as above. #Pneumonia-Aspiration Status: Acute Plan to address problem: # Acute on Chronic respiratory failure Status: Acute Plan to address problem: Oxygen via nasal cannula 3 L/min. DuoNeb by nebulizer every 4 hours. Prednisone 20 mg p.o. daily #Asthma Status: Acute Plan to address problem: Oxygen via nasal cannula 3 L/min. DuoNeb by nebulizer every 4 hours. Prednisone 20 mg p.o. daily #Anoxic encephalopathy Status: Acute Plan to address problem: We will monitor the patient closely. Outpatient follow-up with neurology #Sepsis Status: Acute Plan to address problem: D5 half-normal saline at the rate of 100 cc/h. Rocephin 2 g IV daily. Zithromax 500 mg IV daily. Blood culture and sputum culture. Recheck CBC and lactic acid #possible malfunctioning PEG tube #Bedbound #Abdominal pain #Urinary bladder stones/Nephrolithasis non obstructive Disposition: HOME HEALTH CARE SERVICE Final Discharge Diagnosis (Prints w/discharge instructions): Aspiration Pneum onia with acute on chronic respiratory failure Time spent for discharge: 35 mins Core Measure Documentation - Palliative Care Palliative Care/ Comfort Measures: Not Applicable - Core Measures Any of the following diagnoses?: none Exam - Physical Exam Narrative exam: VITAL SIGNS: Reviewed. GENERAL: The patient appears normally developed, well healed stoma vital signs as documented. HEAD: No signs of head trauma. EYES: Pupils are equal. Extraocular motions intact. EARS: Unable to examine due to anoxic injury MOUTH: Oropharynx is normal. NECK: No adenopathy, no JVD. CHEST: Chest with clear breath sounds bilaterally. No wheezes, rales, or rhonchi. CARDIAC: Regular rate and rhythm. S1 and S2, without murmurs, gallops, or rubs. VASCULAR: No Edema. Peripheral pulses normal and equal in all extremities. ABDOMEN: Soft, non tender and non distended. No rebound or guarding, and no masses palpated. Bowel Sounds normal. MUSCULOSKELETAL: Good range of motion of all major joints. Extremities without clubbing, cyanosis or edema. NEUROLOGIC EXAM: Awake contracted upper extremities. Full neuro exam unable to perform as patient has underlying profound encephalopathy from anoxic encephalopathy PSYCHIATRIC: Unable to exam SKIN: detail exam as documented in skin assessment - Constitutional Vitals: Temp Pulse Resp BP Pulse Ox 99.3 F 117 H 20 118/85 97 08/17/21 04:43 08/17/21 04:43 08/17/21 04:43 08/17/21 04:43 08/17/21 04:43 Plan Activity: advance as tolerated, fall precautions Diet: advance as tolerated Special Instructions: record daily weights, record daily BP diary, physical therapy, occupational therapy, home oxygen via, other (SUCTIONING MACHINE) Plan of Treatment: or continue to follow Dr Arabella Clemente, telehealth Follow up with: ASHLEY CHARLES MD [Staff Physician] - 7 Days LEE GARCIA MD [Staff Physician] - 7 Days MAMTA IBRAHIM MD [Staff Physician] - 7 Days Prescriptions: Ipratropium/Albuterol Sulfate [DUONEB *Not for PRN Use*] 1 ampul IH Q8HR #90 ampul.neb levoFLOXacin [Levaquin TAB] 500 mg PO QDAY #7 tablet ALBUTEROL NEB's [Proventil 0.083% NEBS] 2.5 mg IH Q4H PRN #25 neb PRN Reason: Shortness Of Breath ALPRAZolam [Xanax TAB] 0.5 mg PO BID PRN #12 tab PRN Reason: Anxiety
[2021-08-17] MEDS ORDERED: FUROSEMIDE 40 MG/4 ML INJ IV ONE (11:00)
--- NOTE | 2021-08-17 11:02 | Progress Note ---
Assessment and Plan Impression: Possible left lower lobe pneumonia Suspect aspiration pneumonia Anoxic brain injury. Patient in vegetative state. Poor airway clearance. Recommendation: Continue with antibiotic therapy. Aggressive pulmonary toileting. Patient will require suction machine etc. at home. Long-term prognosis is guarded DVT and GI prophylaxis Follow-up chest x-ray in the morning Subjective Date of service: 08/17/21 Interval history: No significant change. Remain in vegetative state. Objective Vital Signs - 12hr 08/17/21 04:43 Temperature 99.3 F Pulse Rate 117 H Respiratory 20 Rate Blood Pressure 118/85 O2 Sat by Pulse 97 Oximetry Constitutional: other (Altered mental status in a vegetative state. Retrognathia noted) Eyes: non-icteric ENT: oropharynx moist, other (Secretions noted) Neck: supple, other (Healed trach site. No stridor) Ascultation: Bilateral: other (Improved upper airway noises) Cardiovascular: regular rate and rhythm Gastrointestinal: normoactive bowel sounds, soft, non-tender, other (PEG present) Integumentary: normal Extremities: no cyanosis, no edema Neurologic: other (Vegetative state unresponsive opens eyes) CBC and BMP: 08/17/21 05:28 08/17/21 05:28 Abnormal lab findings: Abnormal Labs 08/15/21 08/15/21 08/15/21 21:20 21:20 21:20 WBC 14.3 H Hgb Hct MCV 83 L MCH 26 L Seg Neutrophils % 73.6 H Seg Neutrophils # 10.6 H Chloride 97.0 L BUN Creatinine 0.5 L Glucose 123 H POC Glucose Lactic Acid 2.50 H* Calcium 10.3 H Alkaline Phosphatase 132 H Total Protein 8.3 H 08/15/21 08/16/21 08/16/21 23:19 04:53 04:53 WBC Hgb 11.4 L Hct MCV 83 L MCH 26 L Seg Neutrophils % 76.9 H Seg Neutrophils # 7.9 H Chloride BUN Creatinine 0.4 L Glucose 153 H POC Glucose Lactic Acid 2.20 H* Calcium Alkaline Phosphatase Total Protein 08/16/21 08/16/21 08/17/21 17:01 23:28 05:28 WBC Hgb 11.0 L Hct 34.9 L MCV 83 L MCH 26 L Seg Neutrophils % Seg Neutrophils # Chloride BUN Creatinine Glucose POC Glucose 145 H 137 H Lactic Acid Calcium Alkaline Phosphatase Total Protein 08/17/21 08/17/21 05:28 06:03 WBC Hgb Hct MCV MCH Seg Neutrophils % Seg Neutrophils # Chloride BUN 6 L Creatinine 0.4 L Glucose 123 H POC Glucose 166 H Lactic Acid Calcium Alkaline Phosphatase Total Protein
[2021-08-17] MEDS: hydroCHLOROthiazide 12.5 MG CAP PO SCH (14:06)
[2021-08-17] MEDS: HEPARIN 5,000 UNIT/1 ML VIAL SUB-Q SCH ×2 (14:07→21:38)
[2021-08-17] MEDS: FAMOTIDINE 20 MG/2 ML INJ IV SCH ×2 (14:07→21:38)
[2021-08-17] MEDS: AZITHROMYCIN 250 MG TAB PO SCH (14:08)
[2021-08-17] MEDS: LISINOPRIL 10 MG TAB PO SCH (14:08)
[2021-08-17] MEDS: cefTRIAXone/NS 2 GM/100 ML 2 GM/100 ML BAG IV SCH (23:41)
[2021-08-18] MEDS: IPRATROPIUM/ALBUTEROL SULFATE 3 ML AMPUL.NEB IH SCH ×4 (02:37→21:11)
--- NOTE | 2021-08-18 09:43 | XRay Report ---
CHEST 1 VIEW INDICATION: Pneumonia. COMPARISON: 3 days prior FINDINGS: Support devices: None. Heart: Stable. Lungs/Pleura: There are low lung volumes. Accounting for this lungs are clear. No significant effusio n, no pneumothorax. IMPRESSION: 1. No acute findings. There are low lung volumes with presumed atelectatic changes. Signer Name: Leobardo Gomez MD Signed: 08/18/2021 9:39 AM Workstation Name: [id number]
--- NOTE | 2021-08-18 11:30 | Progress Note ---
Assessment and Plan Impression: Possible left lower lobe pneumonia, resolving (chest x-ray markedly improved) Suspect aspiration pneumonia Anoxic brain injury. Patient in vegetative state. Poor airway clearance. Recommendation: Continue with antibiotic therapy. Aggressive pulmonary toileting. Patient will require suction machine etc. at home. Long-term prognosis is guarded DVT and GI prophylaxis Subjective Date of service: 08/18/21 Interval history: No significant change. Remain in vegetative state. Objective Vital Signs - 12hr 08/18/21 08/18/21 08/18/21 02:37 04:49 09:29 Temperature 98.6 F Pulse Rate 75 Pulse Rate [ 83 Bilateral Throughout] Respiratory 16 Rate Respiratory 18 Rate [Bilateral Throughout] Blood Pressure 107/68 O2 Sat by Pulse 93 96 Oximetry 08/18/21 08/18/21 09:38 09:42 Temperature Pulse Rate Pulse Rate [ 84 Bilateral Throughout] Respiratory Rate Respiratory 16 Rate [Bilateral Throughout] Blood Pressure O2 Sat by Pulse 96 Oximetry Constitutional: other (Altered mental status in a vegetative state. Retrognathia noted) Eyes: non-icteric ENT: oropharynx moist, other (Secretions noted) Neck: supple, other (Healed trach site. No stridor) Ascultation: Bilateral: other (Improved upper airway noises) Cardiovascular: regular rate and rhythm Gastrointestinal: normoactive bowel sounds, soft, non-tender, other (PEG present) Integumentary: normal Extremities: no cyanosis, no edema Neurologic: other (Vegetative state unresponsive opens eyes) CBC and BMP: 08/17/21 05:28 08/17/21 05:28 Abnormal lab findings: Abnormal Labs 08/15/21 08/15/21 08/15/21 21:20 21:20 21:20 WBC 14.3 H Hgb Hct MCV 83 L MCH 26 L Seg Neutrophils % 73.6 H Seg Neutrophils # 10.6 H Chloride 97.0 L BUN Creatinine 0.5 L Glucose 123 H POC Glucose Lactic Acid 2.50 H* Calcium 10.3 H Alkaline Phosphatase 132 H Total Protein 8.3 H 08/15/21 08/16/21 08/16/21 23:19 04:53 04:53 WBC Hgb 11.4 L Hct MCV 83 L MCH 26 L Seg Neutrophils % 76.9 H Seg Neutrophils # 7.9 H Chloride BUN Creatinine 0.4 L Glucose 153 H POC Glucose Lactic Acid 2.20 H* Calcium Alkaline Phosphatase Total Protein 08/16/21 08/16/21 08/17/21 17:01 23:28 05:28 WBC Hgb 11.0 L Hct 34.9 L MCV 83 L MCH 26 L Seg Neutrophils % Seg Neutrophils # Chloride BUN Creatinine Glucose POC Glucose 145 H 137 H Lactic Acid Calcium Alkaline Phosphatase Total Protein 08/17/21 08/17/21 08/17/21 05:28 06:03 11:15 WBC Hgb Hct MCV MCH Seg Neutrophils % Seg Neutrophils # Chloride BUN 6 L Creatinine 0.4 L Glucose 123 H POC Glucose 166 H 128 H Lactic Acid Calcium Alkaline Phosphatase Total Protein 08/17/21 08/18/21 08/18/21 16:59 00:19 06:29 WBC Hgb Hct MCV MCH Seg Neutrophils % Seg Neutrophils # Chloride BUN Creatinine Glucose POC Glucose 151 H 128 H 122 H Lactic Acid Calcium Alkaline Phosphatase Total Protein Chest x-ray: image reviewed (No definite infiltrate on today's chest x-ray)
--- NOTE | 2021-08-18 12:10 | Progress Note ---
Assessment and Plan Assessment and plan: 45-year-old male with history of respiratory failure status post trach removal, anoxic brain injury (s/p cardiac arrest during a pancreatitis admission) concerns of possible respiratory infection. Patient had anoxic brain injury status postcardiac arrest in June 2020. Since that time he has been hosp italized and then subsequently placed in a intermediate 2 hours away from the 's residence. She wanted him closer to home and felt that he was getting negligent care at the intermediate due to recurrent bedsores. She recently got approved for a program that allows extended home health care for debilitated patients. Patient came home 1 week ago however, states that she did not receive any home care instructions or home nursing visits as promised. For the last several days she has noted he has been groaning a lot with increased airway congestion. She also expresses concerns that PEG tube may be leaking. In the emergency room WBC of 14.3, lactic acid 2.50, chest x-ray shows quest ionable density/infiltrate in the upper retrocardiac region in the left lower lung. So going to admit the patient we will put the patient on pneumonia pathway, antibiotic will consult pulmonary for evaluation 08/16: Discussed extensively with the spouse. Will obtain case management to assist with home discharge plan to ensure the spouse has the support needed at home and training required to take care of the patient. In the meantime continue oxygen support and also antibiotic therapy. Will obtain CT abdomen and pelvis with p.o. contrast. We will follow leukocytosis and lactic acidosis. P atient does not have any new fever will transition patient to the medical floor with continued management. Aspiration precautions and fall precautions. Plan of care discussed with the spouse advance care directive planning discussed in detail patient remains a full code. Spent with greater than 50% spent on counseling and care coordination 08/17: Patient doing well, tolerating tube feed. SPOKE WITH THE PATIENTS SPOUSE, She will come in for training and education prior to discharge today. Patient has bladder stones but no obstruction. she will follow with Urology and Also with Neurology. She understanding that there may be no meaningful recovery with the anoxic injury. Oxygen weaned. 08/18: Patient seen and examined, discussed with case management and we are working on safe discharge with the insurance company to ensure patient gets the desired care at home. wean oxygen as tolerated. Patient can be discharged once all outpatient requirements are set up. CT A/P IMPRESSION: 1. Multiple bladder stones, otherwise no CT findings to explain abdominal pain. 2. Additional findings as above. #Pneumonia-Aspiration Status: Acute Plan to address problem: # Acute on Chronic respiratory failure Status: Acute Plan to address problem: Oxygen via nasal cannula 3 L/min. DuoNeb by nebulizer every 4 hours. Prednisone 20 mg p.o. daily #Asthma Status: Acute Plan to address problem: Oxygen via nasal cannula 3 L/min. DuoNeb by nebulizer every 4 hours. Prednisone 20 mg p.o. daily #Anoxic encephalopathy Status: Acute Plan to address problem: We will monitor the patient closely. Outpatient follow-up with neurology #Sepsis Status: Acute Plan to address problem: D5 half-normal saline at the rate of 100 cc/h. Rocephin 2 g IV daily. Zithromax 500 mg IV daily. Blood culture and sputum culture. Recheck CBC and lactic acid #possible malfunctioning PEG tube #Bedbound #Abdominal pain #Urinary bladder stones/Nephrolithasis non obstructive #DVT prophylaxis Status: Acute Plan to address problem: Heparin 5000 units subcu every 12 hours for DVT prophylaxis. Pepcid 20 mg IV every 12 hours for GI prophylaxis. Patient is a full code 35 minutes History Interval history: Patient seen and examined spouse at bedside. Appears that the patient was just sent home from nursing facility but unfortunately there was no support at the house and no training provided to the spouse. Plan for discharge yesterday as patient is improving but appears to have some safety concerns as true care at home has not properly been arranged and was not done by the snf facility at discharge the patient Hospitalist Physical - Physical exam Narrative exam: VITAL SIGNS: Reviewed. GENERAL: The patient appears normally developed, well healed stoma vital signs as documented. HEAD: No signs of head trauma. EYES: Pupils are equal. Extraocular motions intact. EARS: Unable to examine due to anoxic injury MOUTH: Oropharynx is normal. NECK: No adenopathy, no JVD. CHEST: Chest with clear breath sounds bilaterally. No wheezes, rales, or rhonchi. CARDIAC: Regular rate and rhythm. S1 and S2, without murmurs, gallops, or rubs. VASCULAR: No Edema. Peripheral pulses normal and equal in all extremities. ABDOMEN: Soft, non tender and non distended. No rebound or guarding, and no masses palpated. Bowel Sounds normal. MUSCULOSKELETAL: Good range of motion of all major joints. Extremities without clubbing, cyanosis or edema. NEUROLOGIC EXAM: Awake contracted upper extremities. Full neuro exam unable to perform as patient has underlying profound encephalopathy from anoxic encephalopathy PSYCHIATRIC: Unable to exam SKIN: detail exam as documented in skin assessment - Constitutional Vitals: Temp Pulse Resp BP Pulse Ox 98.6 F 84 16 107/68 96 08/18/21 04:49 08/18/21 09:38 08/18/21 09:38 08/18/21 04:49 08/18/21 09:42 General appearance: Present: no acute distress, well-nourished Results - Labs CBC & Chem 7: 08/17/21 05:28 08/17/21 05:28 Labs: Laboratory Last Values WBC 7.9 K/mm3 (4.5-11.0) 08/17/21 05:28 RBC 4.21 M/mm3 (3.65-5.03) 08/17/21 05:28 Hgb 11.0 gm/dl (11.8-15.2) L 08/17/21 05:28 Hct 34.9 % (35.5-45.6) L 08/17/21 05:28 MCV 83 fl (84-94) L 08/17/21 05:28 MCH 26 pg (28-32) L 08/17/21 05:28 MCHC 32 % (32-34) 08/17/21 05:28 RDW 14.0 % (13.2-15.2) 08/17/21 05:28 Plt Count 191 K/mm3 (140-440) 08/17/21 05:28 Lymph % (Auto) 15.3 % (13.4-35.0) 08/16/21 04:53 Trigg % (Auto) 6.9 % (0.0-7.3) 08/16/21 04:53 Eos % (Auto) 0.6 % (0.0-4.3) 08/16/21 04:53 Baso % (Auto) 0.3 % (0.0-1.8) 08/16/21 04:53 Lymph # (Auto) 1.6 K/mm3 (1.2-5.4) 08/16/21 04:53 Trigg # (Auto) 0.7 K/mm3 (0.0-0.8) 08/16/21 04:53 Eos # (Auto) 0.1 K/mm3 (0.0-0.4) 08/16/21 04:53 Baso # (Auto) 0.0 K/mm3 (0.0-0.1) 08/16/21 04:53 Seg Neutrophils % 76.9 % (40.0-70.0) H 08/16/21 04:53 Seg Neutrophils # 7.9 K/mm3 (1.8-7.7) H 08/16/21 04:53 Sodium 140 mmol/L (137-145) 08/17/21 05:28 Potassium 3.8 mmol/L (3.6-5.0) 08/17/21 05:28 Chloride 102.6 mmol/L (98-107) 08/17/21 05:28 Carbon Dioxide 25 mmol/L (22-30) 08/17/21 05:28 Anion Gap 16 mmol/L 08/17/21 05:28 BUN 6 mg/dL (9-20) L 08/17/21 05:28 Creatinine 0.4 mg/dL (0.8-1.3) L 08/17/21 05:28 Estimated GFR > 60 ml/min 08/17/21 05:28 BUN/Creatinine Ratio 15 % 08/17/21 05:28 Glucose 123 mg/dL (75-100) H 08/17/21 05:28 POC Glucose 122 mg/dL (70-105) H 08/18/21 06:29 Lactic Acid 1.10 mmol/L (0.7-2.0) 08/16/21 22:50 Calcium 9.2 mg/dL (8.4-10.2) 08/17/21 05:28 Total Bilirubin 0.30 mg/dL (0.1-1.2) 08/15/21 21:20 AST 21 units/L (5-40) 08/15/21 21:20 ALT 44 units/L (7-56) 08/15/21 21:20 Alkaline Phosphatase 132 units/L (35-129) H 08/15/21 21:20 Total Protein 8.3 g/dL (6.3-8.2) H 08/15/21 21:20 Albumin 5.0 g/dL (3.9-5) 08/15/21 21:20 Albumin/Globulin Ratio 1.5 % 08/15/21 21:20 Urine Color Yellow (Yellow) 08/16/21 13:00 Urine Turbidity Clear (Clear) 08/16/21 13:00 Urine pH 6.0 (5.0-7.0) 08/16/21 13:00 Ur Specific [place] 1.012 (1.003-1.030) 08/16/21 13:00 Urine Protein <15 mg/dl mg/dL (Negative) 08/16/21 13:00 Urine Glucose (UA) Neg mg/dL (Negative) 08/16/21 13:00 Urine Ketones Neg mg/dL (Negative) 08/16/21 13:00 Urine Blood Neg (Negative) 08/16/21 13:00 Urine Nitrite Neg (Negative) 08/16/21 13:00 Urine Bilirubin Neg (Negative) 08/16/21 13:00 Urine Urobilinogen < 2.0 mg/dL (<2.0) 08/16/21 13:00 Ur Leukocyte Esterase Neg (Negative) 08/16/21 13:00 Urine WBC (Auto) 1.0 /HPF (0.0-6.0) 08/16/21 13:00 Urine RBC (Auto) < 1.0 /HPF (0.0-6.0) 08/16/21 13:00 Urine Mucus Few /HPF 08/16/21 13:00 Microbiology: Microbiology 08/15/21 21:20 Peripheral/Venous Blood Culture - Preliminary NO GROWTH AFTER 48 HOURS 08/15/21 21:20 Peripheral/Venous Blood Culture - Preliminary NO GROWTH AFTER 48 HOURS Castellanos/IV: Voiding Method Condom Catheter Active Medications - Current Medications Current Medications: Generic Name Dose Route Start Last Admin Trade Name Freq PRN Reason Stop Dose Admin Acetaminophen 650 mg 08/15/21 22:49 Acetaminophen 325 Mg Tab PO Q4H PRN Pain MILD(1-3)/Fever >100.5/IBARRA Albuterol 2.5 mg 08/15/21 22:49 Albuterol 2.5 Mg/3 Ml Nebu IH Q3HRT PRN Shortness Of Breath Albuterol/Ipratropium 1 ampul 08/16/21 02:00 08/18/21 09:38 Ipratropium/Albuterol Sulfate 3 Ml Ampul.Neb IH 1 ampul Q6HRT SONJA Administration Alprazolam 0.5 mg 08/15/21 22:52 Alprazolam 0.5 Mg Tab PO BID PRN Anxiety Azithromycin 500 mg 08/16/21 10:00 08/17/21 14:08 Azithromycin 250 Mg Tab PO 08/20/21 10:01 500 mg QDAY SONJA Administration Protocol Famotidine 20 mg 08/16/21 10:00 08/17/21 21:38 Famotidine 20 Mg/2 Ml Inj IV 20 mg BID SONJA Administration Heparin Sodium (Porcine) 5,000 unit 08/16/21 10:00 08/17/21 21:38 Heparin 5,000 Unit/1 Ml Vial SUB-Q 5,000 unit Q12HR SONJA Administration Hydrochlorothiazide 12.5 mg 08/16/21 10:00 08/17/21 14:06 Hydrochlorothiazide 12.5 Mg Cap PO 12.5 mg QDAY SONJA Administration Hydromorphone HCl 0.5 mg 08/15/21 22:49 Hydromorphone 1 Mg/1 Ml Inj IV Q3H PRN Pain , Severe (7-10) Dextrose/Sodium Chloride 1,000 mls @ 125 mls/hr 08/15/21 23:00 08/17/21 04:10 D5/0.45ns IV 125 mls/hr DIRECT SONJA Administration Ceftriaxone Sodium 2 gm in 100 mls @ 200 mls/hr 08/15/21 23:00 08/18/21 01:23 Rocephin/Ns 2 Gm/100 Ml IV 08/20/21 22:59 Infused Q24H SONJA Infusion Protocol Lisinopril 10 mg 08/16/21 10:00 08/17/21 14:08 Lisinopril 10 Mg Tab PO 10 mg QDAY SONJA Administration Morphine Sulfate 2 mg 08/15/21 22:49 Morphine 2 Mg/1 Ml Inj IV Q4H PRN Pain, Moderate (4-6) Ondansetron HCl 4 mg 08/15/21 22:49 Ondansetron 4 Mg/2 Ml Inj IV Q8H PRN Nausea And Vomiting Prednisone 20 mg 08/15/21 22:52 Prednisone 20 Mg Tab PO TID PRN asthma Sodium Chloride 10 ml 08/16/21 10:00 08/17/21 21:38 Sodium Chloride 0.9% 10 Ml Flush Syringe IV 10 ml BID SONJA Administration Sodium Chloride 10 ml 08/15/21 22:49 Sodium Chloride 0.9% 10 Ml Flush Syringe IV PRN PRN LINE FLUSH Nutrition/Malnutrition Assess - Dietary Evaluation Nutrition/Malnutrition Findings: Nutrition Notes Start: 08/16/21 10:38 Freq: Status: Active Protocol: Document 08/16/21 10:38 RS (Rec: 08/16/21 11:01 RS [id number]) Nutrition Notes Need for Assessment generated from: MD Order Initial or Follow up Assessment Current Diagnosis Decubitus(Pressure Ulcer), Sepsis,Respiratory Failure Other Pertinent Diagnosis Pneu, S/P Cardiac Arrest, Encephalopathy Dyspenea Current Diet NPO Labs/Tests Cr: 0.4 Glu: 153 Pertinent Medications D5/0.45NS at 125mL/hr Height 6 ft Weight 68 kg Wall Body Weight (kg) 80.90 BMI 20.3 Intake Prior to Admission Poor Weight change and time frame 22% wt loss in 1.5 months. Pt was 87.09kg upon admission in June 2021 Weight Status Appropriate Subjective/Other Information RD consult from MD for TF. 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 MD consulted for PEG examination, noted that site was c/d/i and was in appropriate positioning for use. MD reports that if leaking occurs a gasrograffin study would be obtained to ensure proper spot. Pt height incorrect in chart. RD obtained ht from previous admissions at [facility]. Percent of energy/protein needs met: 0/0 Burn Absent Trauma Absent GI Symptoms None Current % PO Negligible Minimum of two criteria No physical signs of malnutrition Interpretation of Weight Loss (severe) >5% in 1 month #1 Nutrition Diagnosis Inadequate oral intake Etiology s/p cardiac arrest As Evidenced by Signs and Symptoms pt has 22% wt loss in 1.5 months and currently NPO Is patient on ventilator? No Is Patient Ambulatory and/or Out of Bed No REE-([facility]-confined to bed) 1926.104 Calculation Used for Recommendations [facility] Additional Notes Protein: 68-82g/day (1.0-1.2g/ kg BW/day ) Fluid needs: 1mL/kcal or per MD Nutrition Intervention Change Diet Order: Start TF Nutrition Support: Jevity 1.2 at 70mL/hr w/ free water flush of 175mL q4hr Kcal 2,016 Protein (gm) 93 Fluid (mL) 1,356 Goal #1 Pt will meet at least 75% of kcal/protein needs via TF Goal #2 wt maintenance Anticipated Discharge Needs: TF Follow-Up By: 08/18/21 Additional Comments F/U for TF tolerance/ initiation, corrected/updated wt in EMR
[2021-08-18] MEDS: HEPARIN 5,000 UNIT/1 ML VIAL SUB-Q SCH ×2 (12:23→22:09)
[2021-08-18] MEDS: FAMOTIDINE 20 MG/2 ML INJ IV SCH ×2 (12:23→22:08)
[2021-08-18] MEDS ORDERED: SIMPLE SYRUP 15 ML FEEDTUBE PRN ×2 (14:34)
[2021-08-18] MEDS ORDERED: LIPASE 10,500/PROTEASE 25,000/AMYLASE 43,750 (UNITS) DR CAP FEEDTUBE PRN (14:34)
[2021-08-18] MEDS ORDERED: SODIUM BICARBONATE 325 MG TAB FEEDTUBE PRN (14:34)
[2021-08-18] MEDS: LISINOPRIL 10 MG TAB PO SCH (17:22)
[2021-08-18] MEDS: AZITHROMYCIN 250 MG TAB PO SCH (17:22)
[2021-08-18] MEDS: hydroCHLOROthiazide 12.5 MG CAP PO SCH (17:22)
[2021-08-18] MEDS: cefTRIAXone/NS 2 GM/100 ML 2 GM/100 ML BAG IV SCH (22:08)
[2021-08-19] MEDS: IPRATROPIUM/ALBUTEROL SULFATE 3 ML AMPUL.NEB IH SCH ×4 (02:07→15:52)
[2021-08-19] MEDS: FAMOTIDINE 20 MG/2 ML INJ IV SCH (09:16)
[2021-08-19] MEDS: AZITHROMYCIN 250 MG TAB PO SCH (09:16)
[2021-08-19] MEDS: hydroCHLOROthiazide 12.5 MG CAP PO SCH (09:16)
[2021-08-19] MEDS: HEPARIN 5,000 UNIT/1 ML VIAL SUB-Q SCH (09:17)
[2021-08-19] MEDS: LISINOPRIL 10 MG TAB PO SCH (09:17)
--- NOTE | 2021-08-19 10:17 | Discharge Summary ---
Providers - Providers Date of Admission: 08/15/21 22:49 Date of discharge: 08/19/21 Attending physician: DARNELL PALACIOS 08/15/21 22:25 Consult to Case Management [CONS] Urgent Services Needed at Discharge: Home Health Services Notified:: n 08/15/21 22:49 Consult to Physician [CONS] Routine Comment: Consulting Provider: PAULA SUAREZ Physician Instructions: Reason For Exam: Dyspnea 08/16/21 09:00 Consult to Dietitian/Nutrition [CONS] Routine Physician Instructions: Reason For Exam: Reason for Consult: Write/Manage Tube Feeding 08/16/21 09:07 Consult to Physician [CONS] Routine Comment: Consulting Provider: STEPH SHELTON Physician Instructions: Reason For Exam: LEAKING PEG 08/16/21 09:21 Consult to Case Management [CONS] Routine Services Needed at Discharge: Director Electrical Engineering DME Equipment Notified:: NO Additional Physician Instructions: TRAINING FOR SPOUSE ON MANGEMENT AT HOME/ NEEDS SUCTION MACHING AT HOME 08/17/21 08:21 Occupational Therapy Evaluate and Treat [CONS] Routine Comment: Reason For Exam: debility, bed bound Physical Therapy Evaluation and Treat [CONS] Routine Comment: Reason For Exam: debility, bedbound Primary care physician: DIRECTOR OF APPLICATION DEVELOPMENT Hospitalization Reason for admission: SOB Condition: Stable Hospital course: Hospital course: 45-year-old male with history of respiratory failure status post trach removal, anoxic brain injury (s/p cardiac arrest during a pancreatitis admission) concerns of possible respiratory infection. Patient had anoxic brain injury status postcardiac arrest in June 2020. Since that time he has been hospita lized and then subsequently placed in a [facility] 2 hours away from the 's residence. She wanted him closer to home and felt that he was getting negligent care at the [facility] due to recurrent bedsores. She recently got approved for a program that allows extended home health care for debilitated patients. Patient came home 1 week ago however, states that she did not receive any home care instructions or home nursing visits as promised. For the last several days she has noted he has been groaning a lot with increased airway congestion. She also expresses concerns that PEG tube may be leaking. In the emergency room WBC of 14.3, lactic acid 2.50, chest x-ray shows questionable density/infiltrate in the upper retrocardiac region in the left lower lung. So going to admit the patient we will put the patient on pneumonia pathway, antibiotic will consult pulmonary for evaluation The patient was admitted with diagnosis of aspiration pneumonia, acute on chronic hypoxic respiratory failure, acute asthma exacerbation, anoxic encephalopathy, sepsis, malfunctioning PEG tube, bedbound status, urinary bladder stone/nephrolithiasis nonobstructive. 08/16: Discussed extensively with the spouse. Will obtain case management to assist with home discharge plan to ensure the spouse has the support needed at home and training required to take care of the patient. In the meantime continue oxygen support and also antibiotic therapy. Will obtain CT abdomen and pelvis with p.o. contrast. We will follow leukocytosis and lactic acidosis. Patient does not have any new fever will transition patient to the medical floor with continued management. Aspiration precautions and fall precautions. Plan of care discussed with the spouse advance care directive planning discussed in detail patient remains a full code. Spent with greater than 50% spent on counseling and care coordination 08/17: Patient doing well, tolerating tube feed. SPOKE WITH THE PATIENTS SPOUSE, She will come in for training and education prior to discharge today. Patient has bladder stones but no obstruction. she will follow with Urology and Also with Neurology. She understanding that there may be no meaningful recovery with the anoxic injury. Oxygen weaned. 08/18: Patient seen and examined, discussed with case management and we are working on safe discharge with the insurance company to ensure patient gets the desired care at home. wean oxygen as tolerated. Patient can be discharged once all outpatient requirements are set up. Disposition: HOME HEALTH CARE SERVICE Final Discharge Diagnosis (Prints w/discharge instructions): aspiration pneumonia, acute on chronic hypoxic respiratory failure, acute asthma exacerbation, anoxic encephalopathy, sepsis, malfunctioning PEG tube, bedbound status, urinary bladder stone/nephrolithiasis nonobstructive. Core Measure Documentation - Palliative Care Palliative Care/ Comfort Measures: Not Applicable - Core Measures Any of the following diagnoses?: none Exam - Constitutional Vitals: Temp Pulse Resp BP Pulse Ox 98.7 F 77 20 123/74 98 08/19/21 06:07 08/19/21 06:07 08/19/21 06:07 08/19/21 06:07 08/19/21 08:44 General appearance: Present: no acute distress, well-nourished - EENT Eyes: Present: PERRL ENT: hearing intact, clear oral mucosa - Neck Neck: Present: supple, normal ROM - Respiratory Respiratory effort: normal Respiratory: bilateral: CTA - Cardiovascular Heart Sounds: Present: S1 & S2. Absent: rub, click - Extremities Extremities: pulses symmetrical, No edema Peripheral Pulses: within normal limits - Abdominal General gastrointestinal: Present: soft, non-tender, non-distended, normal bowel sounds Male genitourinary: Present: normal - Integumentary Integumentary: Present: clear, warm, dry - Musculoskeletal Musculoskeletal: gait normal, strength equal bilaterally - Psychiatric Psychiatric: appropriate mood/affect, intact judgment & insight - Neurologic Neurologic: other (Anoxic encephalopathy) Plan Activity: advance as tolerated Weight Bearing Status: Non-Weight Bearing Diet: per dietitian instruction Wound: per wound nurse instructions Plan of Treatment: or continue to follow Dr Arabella Clemente, telehealth Follow up with: ASHLEY CHARLES MD [Staff Physician] - 7 Days MAMTA IBRAHIM MD [Staff Physician] - 7 Days LEE GARCIA MD [Staff Physician] - 7 Days Prescriptions: Ipratropium/Albuterol Sulfate [DUONEB *Not for PRN Use*] 1 ampul IH Q8HR #90 a mpul.neb levoFLOXacin [Levaquin TAB] 500 mg PO QDAY #7 tablet ALBUTEROL NEB's [Proventil 0.083% NEBS] 2.5 mg IH Q4H PRN #25 neb PRN Reason: Shortness Of Breath ALPRAZolam [Xanax TAB] 0.5 mg PO BID PRN #12 tab PRN Reason: Anxiety
[2021-08-19 15:14] VITALS: BP 106/68
== END 2021-08-19 07:05 | disposition home or self-care (01) | DRG 871 ==
LOC: ED 20:06 → IMCU 22:49 → 3A 08-16 14:20
PROVIDERS: ADMIT Hospitalist; ATTEND Hospitalist
DX: A41.9 Sepsis, unspecified organism (principal); J69.0 Pneumonitis due to inhalation of food and vomit; J96.21 Acute and chronic respiratory failure with hypoxia; G93.1 Anoxic brain damage, not elsewhere classified; J45.901 Unspecified asthma with (acute) exacerbation; K94.23 Gastrostomy malfunction; J45.909 Unspecified asthma, uncomplicated; I10 Essential (primary) hypertension; Z79.899 Other long term (current) drug therapy; Z82.49 Family history of ischemic heart disease and other diseases of the circulatory system; Z74.01 Bed confinement status; Y83.8 Other surgical procedures as the cause of abnormal reaction of the patient, or of later complication, without mention of misadventure at the time of the procedure; N20.0 Calculus of kidney
CPT/HCPCS: 36415; 71045; 74176; 80048; 80053; 81001; 82140; 82962; 85025; 85027; 87040; 93005; 94640; 94760; 96374; 96375; 99285; G0378; J3490; J7070; J0692; J0696; J1644; J1940; J3370; J7030; J7040; J7050

== ENCOUNTER 2021-08-22 15:44 | Emergency (ER) | payer OTHER ==
--- NOTE | 2021-08-22 17:52 | XRay Report ---
ABDOMEN 1 VIEW INDICATION / CLINICAL INFORMATION: confirm tube patency and placement. COMPARISON: CT scan dated 08/17/2021 FINDINGS: TUBES / LINES: PEG tube tip is in the stomach. Injected contrast is noted in the fundus of the stomac h antrum and extends into the duodenum. BOWEL GAS PATTERN: There is gaseous distention of splenic flexure of the colon. FREE AIR / EXTRALUMINAL GAS: None seen. ADDITIONAL FINDINGS: No significant additional findings. IMPRESSION: 1. The tip of the PEG tube is in the stomach. Injected contrast is in the stomach and duodenum. Signer Name: Hari Conrad MD Signed: 08/22/2021 5:48 PM Workstation Name: [id number]
--- NOTE | 2021-08-22 18:30 | Emergency Department Report ---
<ANNA CASAS - Last Filed: 08/22/21 23:58> ED General Adult HPI - General Chief complaint: Tube Replacement Stated complaint: CLOGGED FEEDING TUBE Time Seen by Provider: 08/22/21 16:50 - Related Data Home Medications Medication Instructions Recorded Confirmed Last Taken predniSONE [Deltasone] 20 mg PO TID PRN 01/25/15 08/16/21 01/24/15 Previous Rx's Medication Instructions Recorded Last Taken Type Lisinopril/Hydrochlorothiazide 1 each PO QDAY #30 tablet 01/25/15 Unknown Rx [Zestoretic 10-12.5 mg] ALBUTEROL NEB's [Proventil 0.083% 2.5 mg IH Q4H PRN #25 neb 08/17/21 Unknown Rx NEBS] ALPRAZolam [Xanax TAB] 0.5 mg PO BID PRN #12 tab 08/17/21 Unknown Rx Ipratropium/Albuterol Sulfate 1 ampul IH Q8HR #90 ampul.neb 08/17/21 Unknown Rx [DUONEB *Not for PRN Use*] levoFLOXacin [Levaquin TAB] 500 mg PO QDAY #7 tablet 08/17/21 Unknown Rx Allergies Allergy/AdvReac Type Severity Reaction Status Date / Time No Known Allergies Allergy Verified 01/25/15 00:52 ED Past Medical Hx - Medications Home Medications: Home Medications Medication Instructions Recorded Confirmed Last Taken Type Lisinopril/Hydrochlorothiazide 1 each PO QDAY #30 tablet 01/25/15 08/16/21 Unknown Rx [Zestoretic 10-12.5 mg] predniSONE [Deltasone] 20 mg PO TID PRN 01/25/15 08/16/21 01/24/15 History ALBUTEROL NEB's [Proventil 0.083% 2.5 mg IH Q4H PRN #25 neb 08/17/21 Unknown Rx NEBS] ALPRAZolam [Xanax TAB] 0.5 mg PO BID PRN #12 tab 08/17/21 Unknown Rx Ipratropium/Albuterol Sulfate 1 ampul IH Q8HR #90 ampul.neb 08/17/21 Unknown Rx [DUONEB *Not for PRN Use*] levoFLOXacin [Levaquin TAB] 500 mg PO QDAY #7 tablet 08/17/21 Unknown Rx ED Course - Reevaluation(s) Reevaluation #3: 08/22/21 23:59 I reassessed patient. He is in no respiratory distress. I discussed with patient's the plan. She is agreeable. She is concerned about some throat secretions he is having. Given this I have ordered a throat culture that is sent off. Patient also had some mild sweating. Plan for rectal temp. Rectal temp showed no fever. Given this and given lack of evidence of any pneumonia, normal white blood cell count we will plan for discharge patient home patient to follow-up as needed with primary care. Patient states she does have a home health aide that helps her at home. ED Medical Decision Making - Lab Data Result diagrams: 08/22/21 20:57 08/22/21 20:57 ED Disposition Clinical Impression: Encounter for care related to feeding tube, History of anoxic brain injury, Tachycardia Disposition: 01 HOME / SELF CARE / HOMELESS Is pt being admited?: No Does the pt Need Aspirin: No Condition: Stable Instructions: PEG Tube Home Guide, Sinus Tachycardia Referrals: PRIMARY CARE, [Primary Care Provider] - 3-5 Days <ZACK WILDER - Last Filed: 08/26/21 21:52> ED General Adult HPI - General Source: EMS Mode of arrival: Stretcher Limitations: Other - History of Present Illness Initial comments: 45-year-old male with history of anoxic brain injury who is PEG dependent presents to the hospital with clogged PEG tube. I spoke to his and pug machine operator via phone. She reports that she was unable to flush the tube, the fluid which is come back out, and this morning she saw greenish discharge from the tube. Patient was just discharged after admission here 3 days ago. During that time received extensive training and education regarding caring for the patient. Patient is nonverbal and unable to provide any history of present illness Severity scale (0 -10): 0 ED Review of Systems ROS: Stated complaint: CLOGGED FEEDING TUBE Other details as noted in HPI Comment: Unobtainable due to pts medical conditions ED Past Medical Hx - Past Medical History Hx Hypertension: Yes Hx Heart Attack/AMI: Yes Hx Asthma: Yes Additional medical history: anoxic brain injury - Social History Smoking Status: Unknown if ever smoked ED Physical Exam - General Limitations: Other - Other Other exam information: General: No acute distress Head: Atraumatic Eyes: normal appearance ENT: Moist mucous membranes Neck: Healed tracheostomy scar to anterior Chest: Bilateral rhonchi CV: Regular rate and rhythm Abdomen: Soft, nondistended. PEG tube present which flushes without difficulty with warm water Extremity: Quadriplegic with contracted upper extremity Neuro: Alert, nonverbal, makes incomprehensible sounds ED Course Vital Signs 08/22/21 08/22/21 08/22/21 16:41 17:43 19:30 Temperature 98.7 F Pulse Rate 105 H 101 H 122 H Respiratory 20 18 20 Rate Blood Pressure 134/76 129/87 145/78 [Left] O2 Sat by Pulse 98 98 100 Oximetry 08/22/21 23:46 Temperature 99.7 F H Pulse Rate 103 H Respiratory 18 Rate Blood Pressure 146/87 [Left] O2 Sat by Pulse 98 Oximetry - Reevaluation(s) Reevaluation #1: 08/22/21 19:14 pt up for d/c pt noticed to be moaning more with hr 140's respiratory requested to section patient as per MAR review pt is on xanax and did not received meds today xanax 1mg via peg ordered. 08/22/21 20:00 I spoke to who states that patient often has the similar episodes of moaning and sitting up at home and appearing to be in pain. I informed her that we have held discharge at this time to see if his symptoms improved after Xanax and to receive some additional suctioning. She went to the gas station and will come back to the apartment. She was informed to come to the bedside upon arrival 08/22/21 20:47 no hypoxia noted during ed stay Reevaluation #2: 08/22/21 20:28 PEG TUBE XANAX PROVIDE AT 19:47, PT STILL MOANING AND TACHYCARDIC. LABS AND XRAY WILL BE ORDERED, D/C WILL BE PLACED ON HOLD, PT WILL BE SIGNED OUT TO DR CASAS 08/22/21 20:30 PERCOCET ORDERED VIA PEG TUBE WHILE AWAITING RESULTS ED Medical Decision Making - Lab Data Result diagrams: 08/22/21 20:57 08/22/21 20:57 - Radiology Data Radiology results: report reviewed ABDOMEN 1 VIEW INDICATION / CLINICAL INFORMATION: confirm tube patency and placement. COMPARISON: CT scan dated 08/17/2021 FINDINGS: TUBES / LINES: PEG tube tip is in the stomach. Injected contrast is noted in the fundus of the stomach antrum and extends into the duodenum. BOWEL GAS PATTERN: There is gaseous distention of splenic flexure of the colon. FREE AIR / EXTRALUMINAL GAS: None seen. ADDITIONAL FINDINGS: No significant additional findings. IMPRESSION: 1. The tip of the PEG tube is in the stomach. Injected contrast is in the stomach and duodenum. - Medical Decision Making 45-year-old male presents to the hospital with clogged PEG. During my evaluation I am able to flush tube without difficulty. I did obtain a G-tube Gastrografin study to confirm patency and placement of the tube. G-tube study does show that contrast is going through the tube and into the stomach and intestines. After G-tube study I once again placed to without difficulty. Will discharge patient back home As per monitor patient has had worsening tachycardia to 6 PM. He is also groaning more. Patient was treated with the following Xanax then Percocet TYLENOL also ordered Labs, EKG, chest x-ray ordered IV fluid Patient will be signed out to Dr. Casas to follow-up and discharged to be placed Patient was received discharge 3 days ago and he is also supposed to be taking Levaquin for 7 days prior to discharge. A dose will be ordered since he did not receive medications today due to peg tube dysfunction Chart reviewed after patient disposition. Labs were unremarkable and patient was subsequently discharged home. HR did improve to low 100's prior to d/c - Differential Diagnosis BLOCKED TUBE, PAIN, DEHYDATION, INFECTION Critical Care Time: No Critical care attestation.: If time is entered above; I have spent that time in minutes in the direct care of this critically ill patient, excluding procedure time. ED Disposition Is pt being admited?: No Time of Disposition: 18:30
[2021-08-22] MEDS ORDERED: ALPRAZolam 1 MG TAB FEEDTUBE ONE (19:14)
[2021-08-22] MEDS ORDERED: SODIUM CHLORIDE 0.9% 500 ML 500 ML IV ONE (20:30)
[2021-08-22] MEDS ORDERED: oxyCODONE /ACETAMINOPHEN 5-325MG TAB FEEDTUBE ONE (20:30)
[2021-08-22] MEDS ORDERED: ACETAMINOPHEN 325 MG/10.15 ML ORAL LIQD UNIT DOSE FEEDTUBE ONE (20:34)
[2021-08-22] MEDS ORDERED: levoFLOXacin 500 MG TAB FEEDTUBE ONE (20:34)
--- NOTE | 2021-08-22 20:58 | XRay Report ---
CHEST 1 VIEW INDICATION / CLINICAL INFORMATION: TACHYCARDIA, rhonchi. COMPARISON: 08/18/2021 FINDINGS: SUPPORT DEVICES: None. HEART / MEDIASTINUM: No significant abnormality. LUNGS / PLEURA: No significant pulmonary or pleural abnormality. No pneumothorax. ADDITIONAL FINDINGS: Suboptimal inspiratory effort again noted. IMPRESSION: 1. No acute findings. Signer Name: Herbert Leija MD Signed: 08/22/2021 8:54 PM Workstation Name: [id number]
[2021-08-22 21:51] LABS: Basophils % (Auto) 0.4 % (0.0-1.8); Eosinophils # (Auto) 0.1 K/mm3 (0.0-0.4); Eosinophils % (Auto) 0.5 % (0.0-4.3); Hematocrit 41.6 % (35.5-45.6); Hemoglobin 13.2 gm/dl (11.8-15.2); Lymphocytes # (Auto) 1.2 K/mm3 (1.2-5.4); Lymphocytes % (Auto) 11.1 % (13.4-35.0); Mean Corpuscular HGB Conc 32 % (32-34); Mean Corpuscular Volume 83 fl (84-94); Monocytes # (Auto) 0.5 K/mm3 (0.0-0.8); Monocytes % (Auto) 4.2 % (0.0-7.3); Platelet Count 252 K/mm3 (140-440); Red Blood Count 5.04 M/mm3 (3.65-5.03); Red Cell Distribution Width 14.3 % (13.2-15.2)
[2021-08-22 22:13] LABS: Alanine Aminotransferase 25 units/L (7-56); Albumin 4.2 g/dL (3.9-5); Blood Urea Nitrogen 13 mg/dL (9-20); Calcium 10.3 mg/dL (8.4-10.2); Hemolysis Index 8
[2021-08-22 22:22] LABS: BUN/Creatinine Ratio 33
[2021-08-22 23:48] VITALS: BP 146/87
--- NOTE | 2021-08-26 18:33 | Electrocardiograph Report ---
[facility] Test Date: 2021-08-22 Test Time: 20:37:43 Pat Name: SHANIA RIGGINS Department: Room: Gender: M Cane Loader: CHAYITO : 1975 Requested By: ZACK WILDER Order Number: [id number] Reading MD: Coy Garcia Measurements Intervals [place] Rate: 121 P: 67 KS: 147 QRS: -21 QRSD: 87 T: 12 QT: 321 QTc: 456 Interpretive Statements Sinus tachycardia Probable left atrial enlargement Low voltage, precordial leads Compared to ECG 08/15/2021 21:41:28 No significant changes Electronically Signed On 08-26-2021 18:32:52 EDT by Coy Garcia
== END 2021-08-23 04:30 | disposition home or self-care (01) ==
LOC: ED 15:44
DX: K94.23 Gastrostomy malfunction (principal); K31.89 Other diseases of stomach and duodenum; I10 Essential (primary) hypertension; I21.9 Acute myocardial infarction, unspecified; J45.909 Unspecified asthma, uncomplicated; Z79.899 Other long term (current) drug therapy
CPT/HCPCS: 36415; 43762; 71045; 74018; 80053; 85025; 87116; 93005; 96360; 96361; 99284; J7040; Q9967

== ENCOUNTER 2021-10-04 21:06 | Emergency (ER) | payer OTHER ==
[2021-10-04] MEDS ORDERED: SODIUM CHLORIDE 0.9% 1000 ML 1,000 ML IV ONE ×2 (22:42→23:23)
--- NOTE | 2021-10-04 22:51 | Emergency Department Report ---
ED General Adult HPI - General Chief complaint: Abdominal Pain Stated complaint: LOW URINE OUTPUT PUI?: No Time Seen by Provider: 10/04/21 22:37 Source: EMS Mode of arrival: Stretcher Limitations: Altered Mental Status, Physical Limitation - History of Present Illness Initial comments: THIS IS A 45 YEAR OLD MALE WITH HISTORY OF ANOXIC BRAIN INJURY WHO IS PED TUBE DEPENDENT BROUGHT IN BY WITH CONCERN OF NO BOWEL MOVEMENT AND ALSO DECREASE URINE OUTPUT FOR 1 WEEK; THIS IS THE INFORMATION I RECEIVED FROM NURSING AT THE TIME OF MY EVALUATION, WAS NOT IN THE ROOM. UNABLE TO OBTAIN REVIEW OF SYSTEM FROM THE PATIENT. - Related Data Home Medications Medication Instructions Recorded Confirmed Last Taken predniSONE [Deltasone] 20 mg PO TID PRN 01/25/15 08/16/21 01/24/15 Previous Rx's Medication Instructions Recorded Last Taken Type Lisinopril/Hydrochlorothiazide 1 each PO QDAY #30 tablet 01/25/15 Unknown Rx [Zestoretic 10-12.5 mg] ALBUTEROL NEB's [Proventil 0.083% 2.5 mg IH Q4H PRN #25 neb 08/17/21 Unknown Rx NEBS] ALPRAZolam [Xanax TAB] 0.5 mg PO BID PRN #12 tab 08/17/21 Unknown Rx Ipratropium/Albuterol Sulfate 1 ampul IH Q8HR #90 ampul.neb 08/17/21 Unknown Rx [DUONEB *Not for PRN Use*] levoFLOXacin [Levaquin TAB] 500 mg PO QDAY #7 tablet 08/17/21 Unknown Rx Sennosides/Docusate Sodium 1 each PO Q12H 5 Days #10 10/05/21 Unknown Rx [Docusate Sodium-Senna Tablet] levoFLOXacin [Levaquin] 750 mg PO QDAY 7 Days #7 tablet 10/05/21 Unknown Rx Allergies Allergy/AdvReac Type Severity Reaction Status Date / Time No Known Allergies Allergy Verified 01/25/15 00:52 ED Review of Systems ROS: Stated complaint: LOW URINE OUTPUT Other details as noted in HPI Comment: Unobtainable due to pts medical conditions Constitutional: no symptoms reported, see HPI Eyes: as per HPI ENT: as per HPI Respiratory: no symptoms reported, see HPI Cardiovascular: as per HPI Endocrine: no symptoms reported, see HPI Gastrointestinal: as per HPI, constipation. denies: nausea, vomiting, diarrhea Genitourinary: other (DECREASE URINE OUTPUT) Musculoskeletal: as per HPI Skin: as per HPI Neurological: as per HPI Psychiatric: as per HPI Hematological/Lymphatic: as per HPI ED Past Medical Hx - Past Medical History Previous Medical History?: Yes Hx Hypertension: Yes Hx Heart Attack/AMI: Yes Hx Asthma: Yes Additional medical history: anoxic brain injury - Surgical History Past Surgical History?: Yes Additional Surgical History: PEG tube. - Social History Smoking Status: Never Smoker Substance Use Type: None - Medications Home Medications: Home Medications Medication Instructions Recorded Confirmed Last Taken Type Lisinopril/Hydrochlorothiazide 1 each PO QDAY #30 tablet 01/25/15 08/16/21 Unknown Rx [Zestoretic 10-12.5 mg] predniSONE [Deltasone] 20 mg PO TID PRN 01/25/15 08/16/21 01/24/15 History ALBUTEROL NEB's [Proventil 0.083% 2.5 mg IH Q4H PRN #25 neb 08/17/21 Unknown Rx NEBS] ALPRAZolam [Xanax TAB] 0.5 mg PO BID PRN #12 tab 08/17/21 Unknown Rx Ipratropium/Albuterol Sulfate 1 ampul IH Q8HR #90 ampul.neb 08/17/21 Unknown Rx [DUONEB *Not for PRN Use*] levoFLOXacin [Levaquin TAB] 500 mg PO QDAY #7 tablet 08/17/21 Unknown Rx Sennosides/Docusate Sodium 1 each PO Q12H 5 Days #10 10/05/21 Unknown Rx [Docusate Sodium-Senna Tablet] levoFLOXacin [Levaquin] 750 mg PO QDAY 7 Days #7 tablet 10/05/21 Unknown Rx ED Physical Exam - General Limitations: Altered Mental Status, Physical Limitation General appearance: alert, in no apparent distress, other (NONE VERBAL) - Head Head exam: Present: atraumatic, normocephalic, normal inspection - Eye Eye exam: Present: normal appearance, PERRL, EOMI Pupils: Present: normal accommodation - ENT ENT exam: Present: normal exam, mucous membranes dry - Neck Neck exam: Present: normal inspection - Respiratory Respiratory exam: Present: normal lung sounds bilaterally - Cardiovascular Cardiovascular Exam: Present: tachycardia - GI/Abdominal GI/Abdominal exam: Present: soft. Absent: distended, tenderness, guarding, rebound, rigid, normal bowel sounds - Extremities Exam Extremities exam: Present: normal inspection, full ROM, normal capillary refill - Back Exam Back exam: Present: normal inspection - Neurological Exam Neurological exam: Present: alert - Skin Skin exam: Present: normal color ED Course Vital Signs 10/04/21 21:07 Temperature 98 F Pulse Rate 100 H Respiratory 18 Rate Blood Pressure 150/100 O2 Sat by Pulse 98 Oximetry ED Medical Decision Making - Lab Data Result diagrams: 10/04/21 22:51 10/04/21 22:51 Critical care attestation.: If time is entered above; I have spent that time in minutes in the direct care of this critically ill patient, excluding procedure time. ED Disposition Clinical Impression: UTI (urinary tract infection), Constipation Disposition: 01 HOME / SELF CARE / HOMELESS Is pt being admited?: No Does the pt Need Aspirin: No Condition: Stable Instructions: Chronic Constipation, Urinary Tract Infection, Adult Additional Instructions: MAKE A FOLLOW UP APPOINTMENT WITH YOUR PRIMARY CARE PROVIDER TO BE SEEN WITHIN 3 DAYS. IN THE MEANTIME, CRUSH UP THE MEDICATION AND TAKE INSTRUCTED. Prescriptions: Sennosides/Docusate Sodium [Docusate Sodium-Senna Tablet] 1 each PO Q12H 5 Days #10 levoFLOXacin [Levaquin] 750 mg PO QDAY 7 Days #7 tablet Time of Disposition: 05:59
--- NOTE | 2021-10-04 23:06 | XRay Report ---
ABDOMEN 1 VIEW 10/04/2021 INDICATION / CLINICAL INFORMATION: NO BM 1 WEEK. COMPARISON: Abdominal radiograph dated 08/22/[address] of the abdomen pelvis dated August 2021 FINDINGS: TUBES / LINES: Gastrostomy tube is noted in the left upper quadrant. BOWEL GAS PATTERN: Normal bowel gas pattern with moderate to large amount stool within the right maria victoria colon. FREE AIR / EXTRALUMINAL GAS: None seen. ADDITIONAL FINDINGS: Bony excrescence off the right acetabulum. IMPRESSION: 1. Large amount of stool retention within the right hemicolon. Signer Name: Moreno Paige DO Signed: 10/04/2021 11:02 PM Workstation Name: [id number]
[2021-10-04 23:17] LABS: Hematocrit 43.8 % (35.5-45.6); Hemoglobin 13.9 gm/dl (11.8-15.2); Mean Corpuscular HGB Conc 32 % (32-34); Mean Corpuscular Volume 83 fl (84-94); Platelet Count 242 K/mm3 (140-440); Red Blood Count 5.26 M/mm3 (3.65-5.03); Red Cell Distribution Width 14.3 % (13.2-15.2)
[2021-10-04] MEDS ORDERED: LACTULOSE 20 GM/30 ML ORAL LIQD PO ONE (23:21)
[2021-10-04] MEDS ORDERED: SENNOSIDES/DOCUSATE SODIUM 8.6/50 MG TAB PO ONE (23:21)
[2021-10-04] MEDS ORDERED: MAGNESIUM CITRATE 300 ML ORAL LIQD PO ONE (23:21)
[2021-10-04 23:34] LABS: Alanine Aminotransferase 29 units/L (7-56); Blood Urea Nitrogen 10 mg/dL (9-20); Calcium 10.5 mg/dL (8.4-10.2); Hemolysis Index 7
[2021-10-04 23:35] LABS: BUN/Creatinine Ratio 17
[2021-10-05] MEDS ORDERED: SENNOSIDES/DOCUSATE SODIUM 8.6/50 MG TAB PO ONE (02:05)
[2021-10-05] MEDS ORDERED: MAGNESIUM CITRATE 300 ML ORAL LIQD PO ONE (02:05)
[2021-10-05] MEDS ORDERED: LACTULOSE 20 GM/30 ML ORAL LIQD PO ONE (02:10)
[2021-10-05] MEDS ORDERED: ONDANSETRON 4 MG/2 ML INJ IV ONE (03:00)
[2021-10-05] MEDS ORDERED: ONDANSETRON 4 MG/2 ML INJ ONE (03:00)
--- NOTE | 2021-10-05 03:28 | XRay Report ---
CHEST 1 VIEW 10/05/2021 2:18 AM INDICATION / CLINICAL INFORMATION: PRODUCTIVE COUGH; PATIENT HAS ANOXIOUS BRAIN INJUR. COMPARISON: 08/22/2021 FINDINGS: SUPPORT DEVICES: None. HEART / MEDIASTINUM: No significant abnormality. LUNGS / PLEURA: Perihilar streaky airspace opacities. No pneumothorax. ADDITIONAL FINDINGS: No significant additional findings. IMPRESSION: 1. Perihilar streaky airspace process opacities suggesting pulmonary edema. Signer Name: Moreno Paige DO Signed: 10/05/2021 3:24 AM Workstation Name: [id number]
[2021-10-05] MEDS ORDERED: MINERAL OIL ENEMA 133 ML PR ONE (04:31)
[2021-10-05 05:40] LABS: Bilirubin,Urine NEG (Negative); Blood,Urine LG (Negative); Color,Urine Yellow (Yellow); Urobilinogen,Urine < 2.0 mg/dL (<2.0)
[2021-10-05 05:48] LABS: Bacteria,Urine 1+ /HPF (Negative); Calcium Oxalate Crystals,Urine 1+; Hyaline Casts,Urine 2 /LPF; Mucus,Urine 2+ /HPF
[2021-10-05 05:49] LABS: RBC,Urine > 182.0 /HPF (0.0-6.0)
[2021-10-05] MEDS ORDERED: cefTRIAXone/NS 1 GM/50 ML 1 GM/50 ML BAG IV ONE (05:56)
[2021-10-05] MEDS ORDERED: SODIUM CHLORIDE 0.9% 1000 ML 1,000 ML IV ONE (05:56)
[2021-10-05 06:01] VITALS: BP 146/83
== END 2021-10-05 11:30 | disposition home or self-care (01) ==
LOC: ED 21:06
DX: N39.0 Urinary tract infection, site not specified (principal); K59.00 Constipation, unspecified; I10 Essential (primary) hypertension; I21.9 Acute myocardial infarction, unspecified; J45.909 Unspecified asthma, uncomplicated; Z79.899 Other long term (current) drug therapy
CPT/HCPCS: 36415; 71045; 74018; 80053; 81001; 82140; 83735; 85027; 87040; 96361; 96365; 96375; 99284; J0696; J2405; J7030